=== PATIENT | female | born 1990 | race Caucasian/White ===

== ENCOUNTER 2016-08-23 10:29 | Emergency (ER) | payer SELFPAY ==
[~2016-08-23 10:29] MED LIST: NORCO1 TA1 PO
--- NOTE | 2016-08-23 14:27 | ED NURSING NOTES ---
Clinical Report - Nurses [facility] [address] [place] [address] 08/23/2016 10:32 Patient: COLIN QUIROS TRIAGE Triage time 1035. Acuity: LEVEL 3. Chief Complaint: COUGH and BODY ACHES and known FLU EXPOSURE. Alert. No acute distress. SEPSIS SCREEN: Sepsis Screen: negative. Negative (no infection suspected/documented). --10:50 Yas Stone R.N. 10:46 08/23/16. BP: 129/59. HR: 104. RR: 20. O2 saturation: 100%. Temp: 98.6 F. Pain level now: 08/22. --10:50 Yas Stone R.N. Weight: 63.5 kg stated. Height/Length: 65 inches Per Patient. BMI: 23.3. --10:47 Yas Stone R.N. Medications None. --10:48 Yas Stone R.N. Allergies No Known Drug Allergy. --10:48 Yas Stone R.N. Medication/allergy information source: the patient. --10:50 Yas Stone R.N. History This started yesterday. She has had chest congestion, fatigue and a headache. No recent travel. 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 PAST MEDICAL HX: Immunizations: status is unknown. Last normal menstrual period- Jun 27. SOCIAL HX: Never smoker. Occasional alcohol use. No drug use. FALL RISK ASSESSMENT: Fall risk assessment completed. No fall risk identified. NUTRITIONAL RISK ASSESSMENT: The nutritional risk assessment revealed no deficiencies. FUNCTIONAL ASSESSMENT: Functional assessment: no impairments noted. LEARNING NEEDS ASSESSMENT: The learning needs assessment revealed no barriers. SKIN INTEGRITY ASSESSMENT: Skin integrity risk assessment completed. No skin integrity risk identified. --10:50 Yas Stone R.N. PROBLEMS: Biliary Colic. --10:49 Yas Stone R.N. ADDITIONAL SURGERIES: Cholecystectomy. --10:49 Yas Stone R.N. Interventions ID band on patient. To room. --10:50 Yas Stone R.N. PHYSICAL ASSESSMENT Ambulatory to room. Patient gowned. GENERAL / NEURO / PSYCH: Alert. Oriented X 4. Appears anxious. HEENT: Mucous membranes are pink. RESPIRATORY: Respirations not labored. CVS: Capillary refill less than 2 seconds. GI / : ( "Feel a little bloated" . Last bm yesterday, hard, cramps). No nausea noted. No diarrhea or difficulty with urination. No emesis noted. SKIN: Skin intact. Skin is warm and dry. Normal skin turgor. --10:52 Ysa Stone R.N. NURSING PROGRESS NOTES Patient gowned. Head of bed elevated. Two patient identifiers checked. Call light placed in reach. Side rails up x 2. Bed placed in lowest position. Brakes of bed on. Patient ready for evaluation. --10:52 Yas Stone R.N. ( POC neg). --10:52 Yas Stone R.N. Patient ID band checked for patient name: patient confirmed. Instructions provided to collect clean catch urine and patient verbalized understanding. Clean catch urine collected with return of yellow-colored cloudy urine; sample sent to lab for urinalysis and culture. Specimen labeled in the presence of the patient. --10:53 Yas Stone R.N. 13:39. Patient ID band checked for patient name and birthdate: patient confirmed. Flu swab obtained by RN via nasal pharyngeal swab. Labeled in the presence of the patient and sent to lab. --13:42 Margaret Trevino R.N. Critical value relayed to ED by barrington. Critical value received by yas. pos influenza B. Critical value read back. Verified lab result and patient ID. ED physician notifed of critical value. --13:59 Yas Stone R.N. DISPOSITION / DISCHARGE 14:30. The patient was discharged by the physician. --19:07 Yas Stone R.N. 14:25 08/23/16. BP: 113/61. HR: 58. RR: 16. O2 saturation: 100%. Temp: deferred. Pain level now: 08/22. 13:04 08/23/16. BP: 118/78. HR: 88. RR: 20. O2 saturation: 100% on room air. 10:46 02/11/17. BP: 129/59. HR: 104. RR: 20. O2 saturation: 100%. Temp: 98.6 F. Pain level now: 08/22. --19:07 Yas Stone R.N. Locked/Released at 08/24/2016 22:45 by Yas Stone R.N.
--- NOTE | 2016-08-23 14:27 | ED ORDER SUMMARY ---
..... Patient: COLIN QUIROS OrderSheet [facility] VisitID: [id number] [address] [place] [address] 25y, F Registration Date/Time: 08/23/2016 ORDER SHEET Weight: 63.5 kg (stated) Allergies: No Known Drug Allergy GENERAL ORDERS: Rapid Influenza Screen (Nasal Pharyngeal) (swab) Urgent (11:08/23/2016 Westley CARPIO) (Ack 11:36 Wood) (13:40 Lupe R.N.) Urine Urgent (11:08/23/2016 Westley CARPIO) (Ack 11:36 Wood) (13:42 Lupe R.N.) MEDICATION ORDERS: IV FLUIDS: ORDER SHEET NOTES: [Electronically signed by Michaela Stone R.N. (22:45 08/24/2016)] [Electronically signed by Manoj Deal MD (00:59 08/25/2016)] [Electronically locked/signed by Michaela Stone R.N. (22:45 08/24/2016)]
--- NOTE | 2016-08-23 14:27 | ED CLINICAL REPORT ---
Clinical Report - Physicians/Mid Levels [facility] [address] [place] [address] 08/23/2016 10:32 Patient: COLIN QUIROS Time Seen: 11:26. Arrived- By private vehicle. Historian- patient. HISTORY OF PRESENT ILLNESS Chief Complaint: MUSCLE ACHES. Is still present. It was gradual in onset. The illness is described as moderate. The patient has had a mild cough, muscle aches and a nasal discharge. She has had chest discomfort (with cough). No fever, sore throat or ear pain. Additional history - The patient has had contact with a sick sister. REVIEW OF SYSTEMS Sexual history - sexually active. No contraception. No nausea, vomiting or diarrhea. Pt wonders if she is . PAST HISTORY PCP: Marur Illness: Possibly . SOCIAL HISTORY Never smoker. ADDITIONAL NOTES The nursing notes have been reviewed. PHYSICAL EXAM Vital Signs: 08/23/2016 14:25 BP: 113/61. HR: 58. RR: 16. O2 saturation: 100%. Pain level now: 08/22. 08/23/2016 13:04 BP: 118/78. HR: 88. RR: 20. O2 saturation: 100%. 08/23/2016 10:46 BP: 129/59. HR: 104. RR: 20. O2 saturation: 100%. Temp: 98.6 F. Pain level now: 10. Appearance: Alert. Eyes: Eyes normal inspection. ENT: Pharynx normal. Uvula midline. Neck: Normal inspection. Neck supple. Respiratory: No respiratory distress. Breath sounds normal. Abdomen: Soft and nontender. No organomegaly. Skin: Skin warm. Normal skin color. Extremities: Extremities exhibit normal ROM. No lower extremity edema. Neuro: No alteration in mental status. LABS, X-RAYS, AND EKG Laboratory Tests: Urine: (DOMITILA: 08/23/2016 10:36) ( MsgRcvd 08/23/2016 11:39) Final results Test Result Flag Units (Reference) URINE NEGATIVE Rapid Influenza Screen: (DOMITILA: 08/23/2016 13:39) ( MsgRcvd 08/23/2016 13:57) Final results SPECIMEN DESCRIPTION: SWAB Test Result Flag Units (Reference) RAPID INFLUENZA SCREEN CALLED TO: JESSE SHAH RN -- DATE: 08/23/16 INFLUENZA A: NEGATIVE SCREEN FOR INFLUENZA A INFLUENZA B: POSITIVE SCREEN FOR INFLUENZA B . CLINICAL IMPRESSION Influenza type B. INSTRUCTIONS Do not work (UNTIL FEVER AND COUGH GONE FOR 1 DAY). (IMMEDIATE RECHECK IF WORSE). Prescription Medications: Tamiflu 75 mg: take 1 capsule orally every 12 hours for 5 days. Dispense ten (10). No refills. Substitution is permissible. Follow-up: Follow up with your doctor in five days if not better. Understanding of the discharge instructions verbalized by patient. (Electronically signed by Manoj Deal MD 08/25/2016 0:59)
--- NOTE | 2016-08-23 14:27 | ED ORDER SUMMARY ---
..... Patient: COLIN QUIROS OrderSheet [facility] VisitID: [id number] [address] [place] [address] 25y, F Registration Date/Time: 08/23/2016 ORDER SHEET Weight: 63.5 kg (stated) Allergies: No Known Drug Allergy GENERAL ORDERS: Rapid Influenza Screen (Nasal Pharyngeal) (swab) Urgent (11:08/23/2016 Westley CARPIO) (Ack 11:36 Wood) (13:40 Lupe R.N.) Urine Urgent (11:08/23/2016 Westley CARPIO) (Ack 11:36 Wood) (13:42 Lupe R.N.) MEDICATION ORDERS: IV FLUIDS: ORDER SHEET NOTES: [Electronically signed by Michaela Stone R.N. (22:45 08/24/2016)] [Electronically signed by Manoj Deal MD (00:59 08/25/2016)] [Electronically locked/signed by Michaela Stone R.N. (22:45 08/24/2016)]
--- NOTE | 2016-08-23 14:27 | ED NURSING NOTES ---
Clinical Report - Nurses [facility] [address] [place] [address] 08/23/2016 10:32 Patient: COLIN QUIROS TRIAGE Triage time 1035. Acuity: LEVEL 3. Chief Complaint: COUGH and BODY ACHES and known FLU EXPOSURE. Alert. No acute distress. SEPSIS SCREEN: Sepsis Screen: negative. Negative (no infection suspected/documented). --10:50 Yas Stone R.N. 10:46 08/23/16. BP: 129/59. HR: 104. RR: 20. O2 saturation: 100%. Temp: 98.6 F. Pain level now: 08/22. --10:50 Yas Stone R.N. Weight: 63.5 kg stated. Height/Length: 65 inches Per Patient. BMI: 23.3. --10:47 Yas Stone R.N. Medications None. --10:48 Yas Stone R.N. Allergies No Known Drug Allergy. --10:48 Yas Stone R.N. Medication/allergy information source: the patient. --10:50 Yas Stone R.N. History This started yesterday. She has had chest congestion, fatigue and a headache. No recent travel. 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 PAST MEDICAL HX: Immunizations: status is unknown. Last normal menstrual period- Jun 27. SOCIAL HX: Never smoker. Occasional alcohol use. No drug use. FALL RISK ASSESSMENT: Fall risk assessment completed. No fall risk identified. NUTRITIONAL RISK ASSESSMENT: The nutritional risk assessment revealed no deficiencies. FUNCTIONAL ASSESSMENT: Functional assessment: no impairments noted. LEARNING NEEDS ASSESSMENT: The learning needs assessment revealed no barriers. SKIN INTEGRITY ASSESSMENT: Skin integrity risk assessment completed. No skin integrity risk identified. --10:50 Yas Stone R.N. PROBLEMS: Biliary Colic. --10:49 Yas Stone R.N. ADDITIONAL SURGERIES: Cholecystectomy. --10:49 Yas Stone R.N. Interventions ID band on patient. To room. --10:50 Yas Stone R.N. PHYSICAL ASSESSMENT Ambulatory to room. Patient gowned. GENERAL / NEURO / PSYCH: Alert. Oriented X 4. Appears anxious. HEENT: Mucous membranes are pink. RESPIRATORY: Respirations not labored. CVS: Capillary refill less than 2 seconds. GI / : ( "Feel a little bloated" . Last bm yesterday, hard, cramps). No nausea noted. No diarrhea or difficulty with urination. No emesis noted. SKIN: Skin intact. Skin is warm and dry. Normal skin turgor. --10:52 Yas Stone R.N. NURSING PROGRESS NOTES Patient gowned. Head of bed elevated. Two patient identifiers checked. Call light placed in reach. Side rails up x 2. Bed placed in lowest position. Brakes of bed on. Patient ready for evaluation. --10:52 Yas Stone R.N. ( POC neg). --10:52 Ysa Stone R.N. Patient ID band checked for patient name: patient confirmed. Instructions provided to collect clean catch urine and patient verbalized understanding. Clean catch urine collected with return of yellow-colored cloudy urine; sample sent to lab for urinalysis and culture. Specimen labeled in the presence of the patient. --10:53 Yas Stone R.N. 13:39. Patient ID band checked for patient name and birthdate: patient confirmed. Flu swab obtained by RN via nasal pharyngeal swab. Labeled in the presence of the patient and sent to lab. --13:42 Margaret Trevino R.N. Critical value relayed to ED by barrington. Critical value received by yas. pos influenza B. Critical value read back. Verified lab result and patient ID. ED physician notifed of critical value. --13:59 Yas Stone R.N. DISPOSITION / DISCHARGE 14:30. The patient was discharged by the physician. --19:07 Yas Stone R.N. 14:25 08/23/16. BP: 113/61. HR: 58. RR: 16. O2 saturation: 100%. Temp: deferred. Pain level now: 08/22. 13:04 08/23/16. BP: 118/78. HR: 88. RR: 20. O2 saturation: 100% on room air. 10:46 02/11/17. BP: 129/59. HR: 104. RR: 20. O2 saturation: 100%. Temp: 98.6 F. Pain level now: 08/22. --19:07 Yas Stone R.N. Locked/Released at 08/24/2016 22:45 by Yas Stone R.N.
--- NOTE | 2016-08-23 14:27 | ED CLINICAL REPORT ---
Clinical Report - Physicians/Mid Levels [facility] [address] [place] [address] 08/23/2016 10:32 Patient: COLIN QUIROS Time Seen: 11:26. Arrived- By private vehicle. Historian- patient. HISTORY OF PRESENT ILLNESS Chief Complaint: MUSCLE ACHES. Is still present. It was gradual in onset. The illness is described as moderate. The patient has had a mild cough, muscle aches and a nasal discharge. She has had chest discomfort (with cough). No fever, sore throat or ear pain. Additional history - The patient has had contact with a sick sister. REVIEW OF SYSTEMS Sexual history - sexually active. No contraception. No nausea, vomiting or diarrhea. Pt wonders if she is . PAST HISTORY PCP: Marur Illness: Possibly . SOCIAL HISTORY Never smoker. ADDITIONAL NOTES The nursing notes have been reviewed. PHYSICAL EXAM Vital Signs: 08/23/2016 14:25 BP: 113/61. HR: 58. RR: 16. O2 saturation: 100%. Pain level now: 08/22. 08/23/2016 13:04 BP: 118/78. HR: 88. RR: 20. O2 saturation: 100%. 08/23/2016 10:46 BP: 129/59. HR: 104. RR: 20. O2 saturation: 100%. Temp: 98.6 F. Pain level now: 10. Appearance: Alert. Eyes: Eyes normal inspection. ENT: Pharynx normal. Uvula midline. Neck: Normal inspection. Neck supple. Respiratory: No respiratory distress. Breath sounds normal. Abdomen: Soft and nontender. No organomegaly. Skin: Skin warm. Normal skin color. Extremities: Extremities exhibit normal ROM. No lower extremity edema. Neuro: No alteration in mental status. LABS, X-RAYS, AND EKG Laboratory Tests: Urine: (DOMITILA: 08/23/2016 10:36) ( MsgRcvd 08/23/2016 11:39) Final results Test Result Flag Units (Reference) URINE NEGATIVE Rapid Influenza Screen: (DOMITILA: 08/23/2016 13:39) ( MsgRcvd 08/23/2016 13:57) Final results SPECIMEN DESCRIPTION: SWAB Test Result Flag Units (Reference) RAPID INFLUENZA SCREEN CALLED TO: JESSE SHAH RN -- DATE: 08/23/16 INFLUENZA A: NEGATIVE SCREEN FOR INFLUENZA A INFLUENZA B: POSITIVE SCREEN FOR INFLUENZA B . CLINICAL IMPRESSION Influenza type B. INSTRUCTIONS Do not work (UNTIL FEVER AND COUGH GONE FOR 1 DAY). (IMMEDIATE RECHECK IF WORSE). Prescription Medications: Tamiflu 75 mg: take 1 capsule orally every 12 hours for 5 days. Dispense ten (10). No refills. Substitution is permissible. Follow-up: Follow up with your doctor in five days if not better. Understanding of the discharge instructions verbalized by patient. (Electronically signed by Manoj Deal MD 08/25/2016 0:59)
--- NOTE | 2016-08-25 01:00 | ED MED RECONCILIATION SUMMARY ---
Patient: GRACIELA PATELCOLIN Medication Reconciliation Report [facility] VisitID: [id number] [address] [place] [address] 25y, F Registration Date/Time: 08/23/2016 Weight: 63.5 kg Height/Length: 65 in. BMI: 23.3 ALLERGIES: No Known Drug Allergy The patient's Home Medications are listed below: NONE. The source(s) of the original Home Medication information: patient The following Medications were given to the patient in the Emergency Department: None. The following Medications were prescribed to the patient: Tamiflu 75 mg: take 1 capsule orally every 12 hours for 5 days. Dispense ten (10). No refills. Substitution is permissible. -- Manoj Deal MD
--- NOTE | 2016-08-25 01:00 | ED DISCHARGE INSTRUCTIONS ---
Patient: COLIN QUIROS General Instructions Located Within [facility] VisitID: [id number] [place] [address] 25y, F Registration Date/Time: 08/23/2016 Influenza type B. INSTRUCTIONS Do not work (UNTIL FEVER AND COUGH GONE FOR 1 DAY). (IMMEDIATE RECHECK IF WORSE). Prescription Medications: Tamiflu 75 mg: take 1 capsule orally every 12 hours for 5 days. Dispense ten (10). No refills. Substitution is permissible. Follow-up: Follow up with your doctor in five days if not better. Understanding of the discharge instructions verbalized by patient. ADDITIONAL INFORMATION Influenza (Adult) Influenza, also called the flu, is a viral illness that affects the air passages of the lungs. It differs from the common cold. It is highly contagious. It may be spread through the air by coughing and sneezing or by direct contact (touching the sick person and then touching your own eyes, nose or mouth). Illness starts 1-3 days after exposure and lasts for 1-2 weeks. Antibiotics are usually not needed unless a complication appears (ear or sinus infection or pneumonia). Symptoms may be mild or severe and can include extreme tiredness (wanting to stay in bed all day), chills, fevers, muscle aching, soreness with eye movement, headache, and a dry, hacking cough. Home Care: Avoid exposure to cigarette smoke (yours or others). Tylenol or ibuprofen (Advil) will help fever, muscle aching, and headache. To avoid risk of liver injury, aspirin should not be used in children and teenagers under 18 with this illness. Nausea and loss of appetite are common. A light diet is recommended. Avoid dehydration by drinking 6-8 glasses of fluids per day (water, sport drinks like Gatorade, soft drinks without caffeine, juices, tea, soup, etc.). Extra fluids will also help loosen secretions in the nose and lungs. Cbvs-vni-nyghvgn cold medicines will not shorten the duration of the illness but may be helpful for the following symptoms: cough (Robitussin DM); sore throat (Chloraseptic lozenges or spray); nasal and sinus congestion (Actifed or Sudafed). [NOTE: Do not use decongestants if you have high blood pressure.] Stay home until your fever has been gone for at least 24 hours (without the use of fever-reducing medications such as ibuprofen). Follow Up with your doctor or as directed by our staff if you are not improving over the next week. Note: If you are age 65 or older, or if you have chronic asthma or COPD, we recommend a pneumococcal vaccinationevery five years. All adults shouldreceive a yearly influenza vaccination every . Ask your doctor about this. Get Prompt Medical Attention if any of the following occur: Cough with lots of colored sputum (mucus) or blood in your sputum Chest pain, shortness of breath, wheezing, or difficulty breathing Severe headache, face, neck or ear pain New rash Fever of 100.4F (38C) oral or higher, not better with fever medication Confusion, behavior change or seizure Severe weakness or dizziness You have been given the following additional information: Influenza (Adult) Do not work (UNTIL FEVER AND COUGH GONE FOR 1 DAY). (Electronically signed by Manoj Deal MD 08/25/2016 0:59)
--- NOTE | 2016-08-25 01:00 | ED MAR SUMMARY ---
..... Medication Administration Record [facility] [address] [place], [place] [id number] Patient: GRACIELA LUISPEDCOLIN Castillo Visit ID: [id number] 25y, F Weight: 63.5 kg Height/Length: 65 in BMI: 23.3 ALLERGIES: No Known Drug Allergy
--- NOTE | 2016-08-25 01:00 | ED MAR SUMMARY ---
..... Medication Administration Record [facility] [address] [place], [place] [id number] Patient: GRACIELA LUISPEDCOLIN Castillo Visit ID: [id number] 25y, F Weight: 63.5 kg Height/Length: 65 in BMI: 23.3 ALLERGIES: No Known Drug Allergy
--- NOTE | 2016-08-25 01:00 | ED MED RECONCILIATION SUMMARY ---
Patient: GRACIELA PATELCOLIN Medication Reconciliation Report [facility] VisitID: [id number] [address] [place] [address] 25y, F Registration Date/Time: 08/23/2016 Weight: 63.5 kg Height/Length: 65 in. BMI: 23.3 ALLERGIES: No Known Drug Allergy The patient's Home Medications are listed below: NONE. The source(s) of the original Home Medication information: patient The following Medications were given to the patient in the Emergency Department: None. The following Medications were prescribed to the patient: Tamiflu 75 mg: take 1 capsule orally every 12 hours for 5 days. Dispense ten (10). No refills. Substitution is permissible. -- Manoj Deal MD
== END 2016-08-23 14:30 | disposition home or self-care (01) ==
LOC: ED SRH 10:29
DX: J10.1 Influenza due to other identified influenza virus with other respiratory manifestations (principal)
CPT/HCPCS: 91400; 93070

== ENCOUNTER 2016-08-27 09:50 | Emergency (ER) | payer SELFPAY ==
--- NOTE | 2016-08-27 12:00 | DIAGNOSTIC IMAGING REPORT ---
PROCEDURE: XR ABDOMEN 1 VIEW UPRIGHT INDICATION: VOMITING TECHNIQUE: Single view upright abdomen. COMPARISON: None. FINDINGS: No free intraperitoneal air. Nonspecific, nonobstructive bowel gas pattern. No suspicious mass, mass effect, or calcifications. The visible osseous structures are intact. Clips from a cholecystectomy. IMPRESSION: 1. Normal single view abdomen.
--- NOTE | 2016-08-27 12:33 | ED ORDER SUMMARY ---
..... Patient: COLIN QUIROS OrderSheet [facility] VisitID: [id number] [address] [place] [address] 25y, F Registration Date/Time: 08/27/2016 ORDER SHEET Weight: 63.5 kg (stated) Allergies: No Known Drug Allergy GENERAL ORDERS: UA-Culture if indicated Urgent (10:11 08/27/2016 JBoardley R.N. per protocol) (Ack 10:14 LNations ER Tech1) (10:15 JBoardley R.N.) Urine Urgent (10:11 08/27/2016 JBoardley R.N. per protocol) (Ack 10:14 LNations ER Tech1) (10:15 JBoardley R.N.) CBC w Diff Urgent (10:15 08/27/2016 JBoardley R.N. per protocol) (Ack 10:21 LNations ER Tech1) (10:48 JBoardley R.N.) CMP Urgent (10:15 08/27/2016 JBoardley R.N. per protocol) (Ack 10:21 LNations ER Tech1) (10:48 JBoardley R.N.) Amylase Urgent (10:15 08/27/2016 JBoardley R.N. per protocol) (Ack 10:21 LNations ER Tech1) (10:48 JBoardley R.N.) Lipase Urgent (10:15 08/27/2016 JBoardley R.N. per protocol) (Ack 10:21 LNations ER Tech1) (10:48 JBoardley R.N.) Abdomen 1V Upright Urgent (10:29 08/27/2016 Yue CARPIO) (Ack 10:32 LNations ER Tech1) (11:02 JBoardley R.N.) MEDICATION ORDERS: IV FLUIDS: IV NS : initial bolus none -, then 1000 mL/hr for X1 (NOW) (10:15 08/27/2016 JBoardley R.N. per protocol) (10:16 JBoardley R.N.) Zofran IV 4 mg (NOW) (10:08/27/2016 JBoardley R.N. per protocol) (10:16 JBoardley R.N.) Dilaudid IV 0.5 mg (NOW) (11:08 08/27/2016 uYe CARPIO) (11:12 JBoardley R.N.) Ativan IV 0.5 mg (NOW) (11:08 08/27/2016 Yue CARPIO) (11:12 JBoardley R.N.) Dilaudid IV 0.5 mg (NOW) (12:27 08/27/2016 Yue CARPIO) (Ack 12:32 JBoardley R.N.) (12:37 JBoardley R.N.) Ativan IV 0.5 mg (NOW) (12:28 08/27/2016 Yue CARPIO) (Ack 12:32 JBoardley R.N.) (12:37 JBoardley R.N.) ORDER SHEET NOTES: [Electronically signed by Maico Vargas R.N. (12:45 08/27/2016)] [Electronically signed by Ruben Patrick MD (20:50 08/29/2016)] [Electronically locked/signed by Maico Vargas R.N. (12:45 08/27/2016)]
--- NOTE | 2016-08-27 12:33 | ED NURSING NOTES ---
Clinical Report - Nurses [facility] [address] [place] [address] 08/27/2016 9:51 [id number] Triage time 10:01. Acuity: LEVEL 3. Chief Complaint: NAUSEA and VOMITING. 10:02 08/27/16. 10:02 08/27/16. Alert. No acute distress. ( Pt c/o N/V with PINEDA. Pt was seen here recently and). SEPSIS SCREEN: Sepsis Screen. Negative (no infection suspected/documented). --10:06 Maico Vargas R.N. 10:01 08/27/16. BP: 118/68. HR: 96. RR: 18. O2 saturation: 100% on room air. Temp: 98.7 F (oral). Pain level now: 12/20. --10:06 Maico Vargas R.N. Weight: 63.5 kg stated. Height/Length: 65 inches Per Patient. BMI: 23.3. --10:00 Maico Vargas R.N. Medications Tamiflu Oral. --10:05 Maico Vargas R.N. Medication/allergy information source: the patient. --10:06 Maico Vargas R.N. Allergies No Known Drug Allergy. --10:05 Maico Vargas R.N. History Arrived by private vehicle. Primary physician (Sep). 10:02 08/27/16. ( Thursday). 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 PAST MEDICAL HX: Last normal menstrual period now. Immunizations not up to date. SOCIAL HX: Never smoker. No alcohol use or drug use. No recent travel. She has had contact with a sick family member. No infectious disease exposure. ABUSE ASSESSMENT: No report of abuse. FALL RISK ASSESSMENT: Fall risk assessment completed. No fall risk identified. NUTRITIONAL RISK ASSESSMENT: The nutritional risk assessment revealed no deficiencies. FUNCTIONAL ASSESSMENT: Functional assessment: no impairments noted. LEARNING NEEDS ASSESSMENT: The learning needs assessment revealed no barriers. SKIN INTEGRITY ASSESSMENT: Skin integrity risk assessment completed. No skin integrity risk identified. --10:06 Maico Vargas R.N. PROBLEMS: Influenza. Biliary Colic. --10:05 Maico Vargas R.N. ADDITIONAL SURGERIES: Cholecystectomy. --10:05 Maico Vargas R.N. Assessment 10:08/27/16. --10:06 Maico Vargas R.N. Interventions 10:08/27/16. 10:08/27/16. ID and allergy band on patient. To treatment room. --10:06 Maico Vargas R.N. PHYSICAL ASSESSMENT 10:08/27/16. Ambulatory to room. GENERAL / NEURO / PSYCH: Appears in pain. RESPIRATORY: Respirations not labored. CVS: Capillary refill less than 2 seconds. SKIN: Skin is warm and dry. --10:06 Maico Vargas R.N. NURSING PROGRESS NOTES 10:08/27/2016 Site #1 started via IV in the right antecubital space with an 20g angiocath, with aseptic technique and good blood return; one attempt. Blood drawn: rainbow set. Labeled in the presence of the patient and sent to the lab. Saline lock flushed with 10 mL saline. --10:16 Maico Vargas R.N. 10:08/27/16. The plan of care for this patient has been created. school lunch monitor, pulse oximeter and NIBP monitor placed on patient; monitor alarms on. Head of bed elevated. Two patient identifiers checked. Call light placed in reach. Side rails up x 2. Bed placed in lowest position. Brakes of bed on. Brakes of chair on. --10:06 Maico Vargas R.N. 10:08/27/16. Patient ready for evaluation- chart flagged and notification provided. --10:06 Miaco Vargas R.N. 10:08/27/16. Patient ID band checked for patient name and birthdate: patient confirmed. Instructions provided to collect clean catch urine and patient verbalized understanding. Clean catch urine collected with return of yellow-colored urine; sample sent to lab for urinalysis, culture and HCG. Specimen labeled in the presence of the patient. --10:15 Maico Vargas R.N. 10:16 08/27/2016 Started bag #1 1000 mL IV Fluids IV NS (Saline); at 1000 mL/hr over 1 hour(s) via site #1. Allergies verified and confirmed 5 rights. IV patency established. IV site checked: no pain, redness, or swelling. IV flushed thoroughly pre- and post-medication administration. Completed per protocol. --10:16 Maico Vargas R.N. 10:16 08/27/2016 Zofran (Ondansetron HCl) IVP 4 mg given. via site #1. Allergies verified and confirmed 5 rights. IV patency established. IV site checked: no pain, redness, or swelling. IV flushed thoroughly pre- and post-medication administration. IVP given by RN. --10:16 Maico Vargas R.N. 10:16 08/27/16. BP: 105/61. HR: 85. RR: 14. O2 saturation: 100% on room air. --10:16 Maico Vargas R.N. 10:16 08/27/16. --10:16 Maico Vargas R.N. 11:06 08/27/2016 IV Fluids IV NS Discontinued: bag #1 infused. Total amount infused: 1000 mL. IV patency established. IV site checked: no pain, redness, or swelling. IV flushed thoroughly. --11:06 Maico Vargas R.N. 11:12 08/27/2016 Dilaudid (HYDROmorphone HCl PF) IVP 0.5 mg given over 2 minute(s) via site #1. Allergies verified, confirmed 5 rights and sedative warning given to the patient. IV patency established. IV site checked: no pain, redness, or swelling. IV flushed thoroughly pre- and post-medication administration. IVP given by RN. --11:12 Maico Vargas R.N. 11:12 08/27/2016 Ativan (LORazepam) IVP 0.5 mg given over 2 minute(s) via site #1. Allergies verified, confirmed 5 rights and sedative warning given to the patient. IV patency established. IV site checked: no pain, redness, or swelling. IV flushed thoroughly pre- and post-medication administration. IVP given by RN. --11:12 Maico Vargas R.N. 11:31 08/27/16. Pulse oximeter and NIBP monitor placed on patient. --11:31 Maico Vargas R.N. 11:08/27/16. HR: 79. O2 saturation: 100% on room air. --11: Maico Vargas R.N. 11:08/27/16. --11:31 Maico Vargas R.N. 12:37 08/27/2016 Dilaudid (HYDROmorphone HCl PF) IVP 0.5 mg given over 2 minute(s) via site #1. Allergies verified, confirmed 5 rights and sedative warning given to the patient and patient's family. IV patency established. IV site checked: no pain, redness, or swelling. IV flushed thoroughly pre- and post-medication administration. IVP given by RN. --12:37 Maico Vargas R.N. 12:37 08/27/2016 Ativan (LORazepam) IVP 0.5 mg given over 2 minute(s) via site #1. Allergies verified, confirmed 5 rights and sedative warning given to the patient. IV patency established. IV site checked: no pain, redness, or swelling. IV flushed thoroughly pre- and post-medication administration. IVP given by RN. --12:37 Maico Vargas R.N. DISPOSITION / DISCHARGE 12:42 08/27/2016 Site #1 removed upon discharge. Catheter intact. --12:42 Maico Vargas R.N. 12:42 08/27/16. Condition at departure: improved. The goals identified in the patient's plan of care were met. No learning barriers present. Discharge instructions provided and reviewed with the patient and family. Reviewed warnings. Reviewed medication(s). Treatments reviewed. Patient and family verbalized understanding. Written instructions provided in Beninese. The patient was discharged by the physician. She was discharged home and accompanied by family. She left the Emergency Department ambulatory and via private vehicle. Family member driving. FALL RISK ASSESSMENT: Fall risk assessment completed. No fall risk identified. --12:42 Maico Vargas R.N. 12:42 08/27/16. BP: 104/72. HR: 79. RR: 14. O2 saturation: 100% on room air. Temp: 98.1 F (oral). --12:42 Maico Vargas R.N. 12:43 08/27/16. Departure time: 12:43. --12:43 Maico Vargas R.N. Locked/Released at 08/27/2016 12:45 by Maico Vargas R.N.
--- NOTE | 2016-08-27 12:33 | ED CLINICAL REPORT ---
Clinical Report - Physicians/Mid Levels [facility] [address] [place] [address] 08/27/2016 9:51 Patient: COLIN QUIROS Time Seen: 10:08 Aug 27 2016. Arrived- By private vehicle. Historian- patient. CPT: ER phys charges level 4 (#[id number]). HISTORY OF PRESENT ILLNESS Chief Complaint: VOMITING. NAUSEA. 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 Has had intermittent emesis since then . Did not keep much down yesterday. Has a PINEDA and thinks this may be making her vomit. and is still present. No nausea, diarrhea, black stools, bloody stools or abdominal pain. No history of possible bad food exposure or known contact with a sick individual. She has had vomiting. Has not recently been on antibiotics. The illness is described as moderate. Similar symptoms previously: None. 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 Seen for similar symptoms. Diagnosis: (Influenza B). REVIEW OF SYSTEMS The patient has had fever, muscle aches and a cough. No difficulty with urination, dark urine, dizziness, sore throat or chest pain. No difficulty breathing, excessive urination or skin rash. Denies current . Hx of PINEDA like this in the past that were just as bad but pain medication did not help much. All systems otherwise negative, except as recorded above. PAST HISTORY Influenza. Biliary Colic. ADDITIONAL SURGERIES: Cholecystectomy. Medications: Tamiflu Oral. Allergies: No Known Drug Allergy. SOCIAL HISTORY Never smoker. No alcohol use or drug use. ADDITIONAL NOTES The nursing notes have been reviewed. PHYSICAL EXAM Vital Signs: 08/27/2016 10:01 BP: 118/68. HR: 96. RR: 18. O2 saturation: 100%. Temp: 98.7 F. Pain level now: 6/10. Appearance: Alert. Appears to be in pain. Patient in mild distress. Eyes: Pupils equal, round and reactive to light. Eyes normal inspection. ENT: Pharynx normal. Neck: Normal inspection. Neck supple. No meningeal signs or lymphadenopathy. CVS: Normal heart rate and rhythm. Heart sounds normal. Pulses normal. Respiratory: No respiratory distress. Breath sounds normal. Abdomen: Soft and nontender. Bowel sounds normal. Skin: Skin warm. Normal skin color. No rash. Neuro: Oriented X 3. No motor deficit. No sensory deficit. Reflexes normal. LABS, X-RAYS, AND EKG Laboratory Tests: UA-Culture if indicated: (DOMITILA: 08/27/2016 10:00) ( [facility] 08/27/2016 10:25) Final results Test Result Flag Units (Reference) URINE COLOR STRAW URINE APPEARANCE CLEAR URINE GLUCOSE NEGATIVE (NEGATIVE) URINE BILIRUBIN NEGATIVE (NEGATIVE) URINE KETONE NEGATIVE (NEGATIVE) URINE SPECIFIC GRAVITY 1.025 (1.010-1.030) URINE PH 6.0 (5.0-8.0) URINE PROTEIN TRACE (NEGATIVE) URINE UROBILINOGEN 1.0 EU/dL (0.2-1.0) URINE NITRITE NEGATIVE (NEGATIVE) URINE BLOOD 3+ (NEGATIVE) URINE LEUK ESTERASE NEGATIVE (NEGATIVE) URINE RBC 10-25 rbc/hpf (0-1) URINE WBC 3-5 wbc/hpf (0-1) URINE EPITHELIAL CELLS 3-5 EPI/hpf (0-5) URINE BACTERIA TRACE (<1+) (NONE SEEN) URINE COMMENT CULT NOT INDICATED 2+ MUCOUSURINE CULTURES ARE SET-UP BASED ON THE FOLLOWING CRITERIA:POSITIVE NITRITEPOSITIVE LEUKOCYTE ESTERASEGREATER THAN 10 WHITE BLOOD CELLSMODERATE (2+) OR GREATER BACTERIA Urine: (DOMITILA: 08/27/2016 10:00) ( [facility] 08/27/2016 10:18) Final results Test Result Flag Units (Reference) URINE NEGATIVE CBC w Diff: (DOMITILA: 08/27/2016 10:15) ( [facility] 08/27/2016 10:28) Final results Test Result Flag Units (Reference) WHITE BLOOD COUNT 5.2 K/uL (4.5-11.5) RED BLOOD COUNT 4.38 M/uL (4.00-5.20) HEMOGLOBIN 13.7 gm/dL (12.0-16.0) HEMATOCRIT 40.2 % (36.0-46.0) MEAN CELL VOLUME 92 fL (80-100) MEAN CORPUSCULAR HGB 31 pg (26-34) MEAN CORPUSCULAR HGB CONC 34 g/dL (31-37) RED CELL DISTRIBUTION WIDTH 11.7 % (11.6-14.8) PLATELET COUNT 132 L K/uL (150-400) NEUTROPHIL % 70.0 % (50-75) LYMPH % 22.5 L % (25-40) MONO % 6.8 % (3-14) EOSINOPHIL % 0.5 % (0-4) BASOPHIL % 0.2 % (0-2) CMP: (DOMITILA: 08/27/2016 10:15) ( MsgRcvd 08/27/2016 10:55) Final results Test Result Flag Units (Reference) GLUCOSE 93 mg/dL (70-110) BUN 10 mg/dL (7-18) CREATININE 0.7 mg/dL (0.6-1.3) Estimated GFR >60 mL/min Estimated GFR- >60 mL/min Note: Persistent reduction over 3 months in eGFR<60 mL/min/1.73 m2 defines CKD. Patients with eGFR values>=60 mL/min/1.73 m2 may also have CKD if evidence ofpersistent proteinuria. Additional information may be foundat www.kidney.org. SODIUM 140 mmol/L (136-145) POTASSIUM 3.6 mmol/L (3.5-5.1) CHLORIDE 106 mmol/L (98-107) CARBON DIOXIDE 22 mmol/L (21-32) CALCIUM 8.1 L mg/dL (8.5-10.1) TOTAL PROTEIN 6.8 g/dL (6.4-8.2) ALBUMIN 3.2 L g/dL (3.3-5.0) BILIRUBIN, TOTAL 0.3 mg/dL (0.0-1.0) ALKALINE PHOSPHATASE 80 U/L (46-116) AST (SGOT) 45 H U/L (15-37) ALT (SGPT) 46 U/L (12-78) LIPASE 176 U/L (73-393) AMYLASE 35 U/L (25-115) . PROGRESS AND PROCEDURES Course of Care: Pt with juan miguel B with poor po since diagnosis. PINEDA that has come and gone with the illness. Worse today likely due to poor po and the viral illness. NO sign of meningitis or encephalitis. No sign of pneumonia. Patient/family counseled. Disposition: Discharged. Condition: stable and improved. CLINICAL IMPRESSION Ongoing influenza B Poor po due to illness Vomiting due to PINEDA PINEDA due to viral illness and poor po. INSTRUCTIONS No strenuous activity. Rest. Do not work for two days until better. Drink plenty of fluids. Warnings: Further evaluation is necessary. SEDATIVE MEDICATION: You were given sedative medication during your visit. Do not drive or operate dangerous machinery. GENERAL WARNINGS: Return or contact your physician immediately if your condition worsens or changes unexpectedly, if not improving as expected, or if other problems arise. Your Current Medications: CONTINUE TAKING THE FOLLOWING MEDICATIONS: Tamiflu Oral. Prescription Medications: Zofran (orally disintegrating tablets) 4 mg: take 1 orally every 4 hours as needed for nausea. Dispense ten (10). No refill. Substitution is permissible. Oxycodone/APAP 5 mg/325 mg: take 1-2 tablets orally every 4 hours as needed for pain. Dispense fifteen (15). No refill. Soma 350 mg: take 1 orally every 6 hours as needed for pain. Dispense fifteen (15). No refill. Follow-up: Follow up with your doctor in two days if not better. Understanding of the discharge instructions verbalized by patient and family. (Electronically signed by Ruben Patrick MD 08/29/2016 20:50)
--- NOTE | 2016-08-27 12:33 | ED ORDER SUMMARY ---
..... Patient: COLIN QUIROS OrderSheet [facility] VisitID: [id number] [address] [place] [address] 25y, F Registration Date/Time: 08/27/2016 ORDER SHEET Weight: 63.5 kg (stated) Allergies: No Known Drug Allergy GENERAL ORDERS: UA-Culture if indicated Urgent (10:11 08/27/2016 JBoardley R.N. per protocol) (Ack 10:14 LNations ER Tech1) (10:15 JBoardley R.N.) Urine Urgent (10:11 08/27/2016 JBoardley R.N. per protocol) (Ack 10:14 LNations ER Tech1) (10:15 JBoardley R.N.) CBC w Diff Urgent (10:15 08/27/2016 JBoardley R.N. per protocol) (Ack 10:21 LNations ER Tech1) (10:48 JBoardley R.N.) CMP Urgent (10:15 08/27/2016 JBoardley R.N. per protocol) (Ack 10:21 LNations ER Tech1) (10:48 JBoardley R.N.) Amylase Urgent (10:15 08/27/2016 JBoardley R.N. per protocol) (Ack 10:21 LNations ER Tech1) (10:48 JBoardley R.N.) Lipase Urgent (10:15 08/27/2016 JBoardley R.N. per protocol) (Ack 10:21 LNations ER Tech1) (10:48 JBoardley R.N.) Abdomen 1V Upright Urgent (10:29 08/27/2016 Yue CARPIO) (Ack 10:32 LNations ER Tech1) (11:02 JBoardley R.N.) MEDICATION ORDERS: IV FLUIDS: IV NS : initial bolus none -, then 1000 mL/hr for X1 (NOW) (10:15 08/27/2016 JBoardley R.N. per protocol) (10:16 JBoardley R.N.) Zofran IV 4 mg (NOW) (10:08/27/2016 JBoardley R.N. per protocol) (10:16 JBoardley R.N.) Dilaudid IV 0.5 mg (NOW) (11:08 08/27/2016 Yue CARPIO) (11:12 JBoardley R.N.) Ativan IV 0.5 mg (NOW) (11:08 08/27/2016 Yue CARPIO) (11:12 JBoardley R.N.) Dilaudid IV 0.5 mg (NOW) (12:27 08/27/2016 Yue CARPIO) (Ack 12:32 JBoardley R.N.) (12:37 JBoardley R.N.) Ativan IV 0.5 mg (NOW) (12:28 08/27/2016 Yue CARPIO) (Ack 12:32 JBoardley R.N.) (12:37 JBoardley R.N.) ORDER SHEET NOTES: [Electronically signed by Maico Vargas R.N. (12:45 08/27/2016)] [Electronically signed by Ruben Patrick MD (20:50 08/29/2016)] [Electronically locked/signed by Maico Vargas R.N. (12:45 08/27/2016)]
--- NOTE | 2016-08-27 12:33 | ED CLINICAL REPORT ---
Clinical Report - Physicians/Mid Levels [facility] [address] [place] [address] 08/27/2016 9:51 Patient: COLIN QUIROS Time Seen: 10:08 Aug 27 2016. Arrived- By private vehicle. Historian- patient. CPT: ER phys charges level 4 (#[id number]). HISTORY OF PRESENT ILLNESS Chief Complaint: VOMITING. 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 Has had intermittent emesis since then . Did not keep much down yesterday. Has a PINEDA and thinks this may be making her vomit. and is still present. No nausea, diarrhea, black stools, bloody stools or abdominal pain. No history of possible bad food exposure or known contact with a sick individual. She has had vomiting. Has not recently been on antibiotics. The illness is described as moderate. Similar symptoms previously: None. 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 Seen for similar symptoms. Diagnosis: (Influenza B). REVIEW OF SYSTEMS The patient has had fever, muscle aches and a cough. No difficulty with urination, dark urine, dizziness, sore throat or chest pain. No difficulty breathing, excessive urination or skin rash. Denies current . Hx of PINEDA like this in the past that were just as bad but pain medication did not help much. All systems otherwise negative, except as recorded above. PAST HISTORY Influenza. Biliary Colic. ADDITIONAL SURGERIES: Cholecystectomy. Medications: Tamiflu Oral. Allergies: No Known Drug Allergy. SOCIAL HISTORY Never smoker. No alcohol use or drug use. ADDITIONAL NOTES The nursing notes have been reviewed. PHYSICAL EXAM Vital Signs: 08/27/2016 10:01 BP: 118/68. HR: 96. RR: 18. O2 saturation: 100%. Temp: 98.7 F. Pain level now: 6/10. Appearance: Alert. Appears to be in pain. Patient in mild distress. Eyes: Pupils equal, round and reactive to light. Eyes normal inspection. ENT: Pharynx normal. Neck: Normal inspection. Neck supple. No meningeal signs or lymphadenopathy. CVS: Normal heart rate and rhythm. Heart sounds normal. Pulses normal. Respiratory: No respiratory distress. Breath sounds normal. Abdomen: Soft and nontender. Bowel sounds normal. Skin: Skin warm. Normal skin color. No rash. Neuro: Oriented X 3. No motor deficit. No sensory deficit. Reflexes normal. LABS, X-RAYS, AND EKG Laboratory Tests: UA-Culture if indicated: (DOMITILA: 08/27/2016 10:00) ( [facility] 08/27/2016 10:25) Final results Test Result Flag Units (Reference) URINE COLOR STRAW URINE APPEARANCE CLEAR URINE GLUCOSE NEGATIVE (NEGATIVE) URINE BILIRUBIN NEGATIVE (NEGATIVE) URINE KETONE NEGATIVE (NEGATIVE) URINE SPECIFIC GRAVITY 1.025 (1.010-1.030) URINE PH 6.0 (5.0-8.0) URINE PROTEIN TRACE (NEGATIVE) URINE UROBILINOGEN 1.0 EU/dL (0.2-1.0) URINE NITRITE NEGATIVE (NEGATIVE) URINE BLOOD 3+ (NEGATIVE) URINE LEUK ESTERASE NEGATIVE (NEGATIVE) URINE RBC 10-25 rbc/hpf (0-1) URINE WBC 3-5 wbc/hpf (0-1) URINE EPITHELIAL CELLS 3-5 EPI/hpf (0-5) URINE BACTERIA TRACE (<1+) (NONE SEEN) URINE COMMENT CULT NOT INDICATED 2+ MUCOUSURINE CULTURES ARE SET-UP BASED ON THE FOLLOWING CRITERIA:POSITIVE NITRITEPOSITIVE LEUKOCYTE ESTERASEGREATER THAN 10 WHITE BLOOD CELLSMODERATE (2+) OR GREATER BACTERIA Urine: (DOMITILA: 08/27/2016 10:00) ( [facility] 08/27/2016 10:18) Final results Test Result Flag Units (Reference) URINE NEGATIVE CBC w Diff: (DOMITILA: 08/27/2016 10:15) ( [facility] 08/27/2016 10:28) Final results Test Result Flag Units (Reference) WHITE BLOOD COUNT 5.2 K/uL (4.5-11.5) RED BLOOD COUNT 4.38 M/uL (4.00-5.20) HEMOGLOBIN 13.7 gm/dL (12.0-16.0) HEMATOCRIT 40.2 % (36.0-46.0) MEAN CELL VOLUME 92 fL (80-100) MEAN CORPUSCULAR HGB 31 pg (26-34) MEAN CORPUSCULAR HGB CONC 34 g/dL (31-37) RED CELL DISTRIBUTION WIDTH 11.7 % (11.6-14.8) PLATELET COUNT 132 L K/uL (150-400) NEUTROPHIL % 70.0 % (50-75) LYMPH % 22.5 L % (25-40) MONO % 6.8 % (3-14) EOSINOPHIL % 0.5 % (0-4) BASOPHIL % 0.2 % (0-2) CMP: (DOMITILA: 08/27/2016 10:15) ( MsgRcvd 08/27/2016 10:55) Final results Test Result Flag Units (Reference) GLUCOSE 93 mg/dL (70-110) BUN 10 mg/dL (7-18) CREATININE 0.7 mg/dL (0.6-1.3) Estimated GFR >60 mL/min Estimated GFR- >60 mL/min Note: Persistent reduction over 3 months in eGFR<60 mL/min/1.73 m2 defines CKD. Patients with eGFR values>=60 mL/min/1.73 m2 may also have CKD if evidence ofpersistent proteinuria. Additional information may be foundat www.kidney.org. SODIUM 140 mmol/L (136-145) POTASSIUM 3.6 mmol/L (3.5-5.1) CHLORIDE 106 mmol/L (98-107) CARBON DIOXIDE 22 mmol/L (21-32) CALCIUM 8.1 L mg/dL (8.5-10.1) TOTAL PROTEIN 6.8 g/dL (6.4-8.2) ALBUMIN 3.2 L g/dL (3.3-5.0) BILIRUBIN, TOTAL 0.3 mg/dL (0.0-1.0) ALKALINE PHOSPHATASE 80 U/L (46-116) AST (SGOT) 45 H U/L (15-37) ALT (SGPT) 46 U/L (12-78) LIPASE 176 U/L (73-393) AMYLASE 35 U/L (25-115) . PROGRESS AND PROCEDURES Course of Care: Pt with juan miguel B with poor po since diagnosis. PINEDA that has come and gone with the illness. Worse today likely due to poor po and the viral illness. NO sign of meningitis or encephalitis. No sign of pneumonia. Patient/family counseled. Disposition: Discharged. Condition: stable and improved. CLINICAL IMPRESSION Ongoing influenza B Poor po due to illness Vomiting due to PINEDA PINEDA due to viral illness and poor po. INSTRUCTIONS No strenuous activity. Rest. Do not work for two days until better. Drink plenty of fluids. Warnings: Further evaluation is necessary. SEDATIVE MEDICATION: You were given sedative medication during your visit. Do not drive or operate dangerous machinery. GENERAL WARNINGS: Return or contact your physician immediately if your condition worsens or changes unexpectedly, if not improving as expected, or if other problems arise. Your Current Medications: CONTINUE TAKING THE FOLLOWING MEDICATIONS: Tamiflu Oral. Prescription Medications: Zofran (orally disintegrating tablets) 4 mg: take 1 orally every 4 hours as needed for nausea. Dispense ten (10). No refill. Substitution is permissible. Oxycodone/APAP 5 mg/325 mg: take 1-2 tablets orally every 4 hours as needed for pain. Dispense fifteen (15). No refill. Soma 350 mg: take 1 orally every 6 hours as needed for pain. Dispense fifteen (15). No refill. Follow-up: Follow up with your doctor in two days if not better. Understanding of the discharge instructions verbalized by patient and family. (Electronically signed by Ruben Patrick MD 08/29/2016 20:50)
--- NOTE | 2016-08-27 12:33 | ED NURSING NOTES ---
Clinical Report - Nurses [facility] [address] [place] [address] 08/27/2016 9:51 [id number] TRI[facility] Triage time 10:01. Acuity: LEVEL 3. Chief Complaint: NAUSEA and VOMITING. 10:02 08/27/16. 10:02 08/27/16. Alert. No acute distress. ( Pt c/o N/V with PINEDA. Pt was seen here recently and). SEPSIS SCREEN: Sepsis Screen. Negative (no infection suspected/documented). --10:06 Maico Vargas R.N. 10:01 08/27/16. BP: 118/68. HR: 96. RR: 18. O2 saturation: 100% on room air. Temp: 98.7 F (oral). Pain level now: 12/20. --10:06 Maico Vargas R.N. Weight: 63.5 kg stated. Height/Length: 65 inches Per Patient. BMI: 23.3. --10:00 Maico Vargas R.N. Medications Tamiflu Oral. --10:05 Maico Vargas R.N. Medication/allergy information source: the patient. --10:06 Maico Vargas R.N. Allergies No Known Drug Allergy. --10:05 Maico Vargas R.N. History Arrived by private vehicle. Primary physician (Sep). 10:02 08/27/16. ( Thursday). Treatment BUSINESS INTEGRATION ANALYST: None. PAST MEDICAL HX: Last normal menstrual period now. Immunizations not up to date. SOCIAL HX: Never smoker. No alcohol use or drug use. No recent travel. She has had contact with a sick family member. No infectious disease exposure. ABUSE ASSESSMENT: No report of abuse. FALL RISK ASSESSMENT: Fall risk assessment completed. No fall risk identified. NUTRITIONAL RISK ASSESSMENT: The nutritional risk assessment revealed no deficiencies. FUNCTIONAL ASSESSMENT: Functional assessment: no impairments noted. LEARNING NEEDS ASSESSMENT: The learning needs assessment revealed no barriers. SKIN INTEGRITY ASSESSMENT: Skin integrity risk assessment completed. No skin integrity risk identified. --10:06 Maico Vargas R.N. PROBLEMS: Influenza. Biliary Colic. --10:05 Maico Vargas R.N. ADDITIONAL SURGERIES: Cholecystectomy. --10:05 Maico Vargas R.N. Assessment 10:08/27/16. --10:06 Maico Vargas R.N. Interventions 10:08/27/16. 10:08/27/16. ID and allergy band on patient. To treatment room. --10:06 Maico Vargas R.N. PHYSICAL ASSESSMENT 10:08/27/16. Ambulatory to room. GENERAL / NEURO / PSYCH: Appears in pain. RESPIRATORY: Respirations not labored. CVS: Capillary refill less than 2 seconds. SKIN: Skin is warm and dry. --10:06 Maico Vargas R.N. NURSING PROGRESS NOTES 10:08/27/2016 Site #1 started via IV in the right antecubital space with an 20g angiocath, with aseptic technique and good blood return; one attempt. Blood drawn: rainbow set. Labeled in the presence of the patient and sent to the lab. Saline lock flushed with 10 mL saline. --10:16 Maico Vargas R.N. 10:08/27/16. The plan of care for this patient has been created. carver hand, pulse oximeter and NIBP monitor placed on patient; monitor alarms on. Head of bed elevated. Two patient identifiers checked. Call light placed in reach. Side rails up x 2. Bed placed in lowest position. Brakes of bed on. Brakes of chair on. --10:06 Maico Vargas R.N. 10:08/27/16. Patient ready for evaluation- chart flagged and notification provided. --10:06 Maico Vargas R.N. 10:08/27/16. Patient ID band checked for patient name and birthdate: patient confirmed. Instructions provided to collect clean catch urine and patient verbalized understanding. Clean catch urine collected with return of yellow-colored urine; sample sent to lab for urinalysis, culture and HCG. Specimen labeled in the presence of the patient. --10:15 Maico Vargas R.N. 10:16 08/27/2016 Started bag #1 1000 mL IV Fluids IV NS (Saline); at 1000 mL/hr over 1 hour(s) via site #1. Allergies verified and confirmed 5 rights. IV patency established. IV site checked: no pain, redness, or swelling. IV flushed thoroughly pre- and post-medication administration. Completed per protocol. --10:16 Maico Vargas R.N. 10:16 08/27/2016 Zofran (Ondansetron HCl) IVP 4 mg given. via site #1. Allergies verified and confirmed 5 rights. IV patency established. IV site checked: no pain, redness, or swelling. IV flushed thoroughly pre- and post-medication administration. IVP given by RN. --10:16 Maico Vargas R.N. 10:16 08/27/16. BP: 105/61. HR: 85. RR: 14. O2 saturation: 100% on room air. --10:16 Maico Vargas R.N. 10:16 08/27/16. --10:16 Maico Vargas R.N. 11:06 08/27/2016 IV Fluids IV NS Discontinued: bag #1 infused. Total amount infused: 1000 mL. IV patency established. IV site checked: no pain, redness, or swelling. IV flushed thoroughly. --11:06 Maico Vargas R.N. 11:12 08/27/2016 Dilaudid (HYDROmorphone HCl PF) IVP 0.5 mg given over 2 minute(s) via site #1. Allergies verified, confirmed 5 rights and sedative warning given to the patient. IV patency established. IV site checked: no pain, redness, or swelling. IV flushed thoroughly pre- and post-medication administration. IVP given by RN. --11:12 Maico Vargas R.N. 11:12 08/27/2016 Ativan (LORazepam) IVP 0.5 mg given over 2 minute(s) via site #1. Allergies verified, confirmed 5 rights and sedative warning given to the patient. IV patency established. IV site checked: no pain, redness, or swelling. IV flushed thoroughly pre- and post-medication administration. IVP given by RN. --11:12 Maico Vargas R.N. 11:31 08/27/16. Pulse oximeter and NIBP monitor placed on patient. --11:31 Maico Vargas R.N. 11:08/27/16. HR: 79. O2 saturation: 100% on room air. --11: Maico Vargas R.N. 11:08/27/16. --11:31 Maico Vargas R.N. 12:37 08/27/2016 Dilaudid (HYDROmorphone HCl PF) IVP 0.5 mg given over 2 minute(s) via site #1. Allergies verified, confirmed 5 rights and sedative warning given to the patient and patient's family. IV patency established. IV site checked: no pain, redness, or swelling. IV flushed thoroughly pre- and post-medication administration. IVP given by RN. --12:37 Maico Vargas R.N. 12:37 08/27/2016 Ativan (LORazepam) IVP 0.5 mg given over 2 minute(s) via site #1. Allergies verified, confirmed 5 rights and sedative warning given to the patient. IV patency established. IV site checked: no pain, redness, or swelling. IV flushed thoroughly pre- and post-medication administration. IVP given by RN. --12:37 Maico Vargas R.N. DISPOSITION / DISCHARGE 12:42 08/27/2016 Site #1 removed upon discharge. Catheter intact. --12:42 Maico Vargas R.N. 12:42 08/27/16. Condition at departure: improved. The goals identified in the patient's plan of care were met. No learning barriers present. Discharge instructions provided and reviewed with the patient and family. Reviewed warnings. Reviewed medication(s). Treatments reviewed. Patient and family verbalized understanding. Written instructions provided in American. The patient was discharged by the physician. She was discharged home and accompanied by family. She left the Emergency Department ambulatory and via private vehicle. Family member driving. FALL RISK ASSESSMENT: Fall risk assessment completed. No fall risk identified. --12:42 Maico Vargas R.N. 12:42 08/27/16. BP: 104/72. HR: 79. RR: 14. O2 saturation: 100% on room air. Temp: 98.1 F (oral). --12:42 Maico Vargas R.N. 12:43 08/27/16. Departure time: 12:43. --12:43 Maico Vargas R.N. Locked/Released at 08/27/2016 12:45 by Maico Vargas R.N.
--- NOTE | 2016-08-29 20:50 | ED MAR SUMMARY ---
..... Medication Administration Record [facility] [address] [place] [place] [address] Patient: COLIN QUIROS Visit ID: [id number] 25y, F Weight: 63.5 kg Height/Length: 65 in BMI: 23.3 ALLERGIES: No Known Drug Allergy Start 10:08/27/2016 Maico Vargas R.N., Stop 11:08/27/2016 Maico Vargas R.N. Medication Administered: IV NS (SALINE), Dose: IV Fluids over 1 hour(s), Rate: 1000 mL/hr, Dispensed: 1000 mL bag, Site: #1 right AC. Medication Ordered: IV NS : initial bolus none -, then 1000 mL/hr for X1 (NOW). Given 10:16 08/27/2016 Maico Vargas R.N. Medication Administered: ZOFRAN [IVP] (ONDANSETRON HCL), Dose: 4 mg IVP, Site: #1 right AC. Medication Ordered: Zofran IV 4 mg (NOW). Given 11:08/27/2016 Maico Vargas R.N. Medication Administered: DILAUDID [IVP] (HYDROMORPHONE HCL PF), Dose: 0.5 mg IVP over 2 minute(s), Site: #1 right AC. Medication Ordered: Dilaudid IV 0.5 mg (NOW). Given 11:08/27/2016 Maico Vargas R.N. Medication Administered: ATIVAN [IVP] (LORAZEPAM), Dose: 0.5 mg IVP over 2 minute(s), Site: #1 right AC. Medication Ordered: Ativan IV 0.5 mg (NOW). Given 12:08/27/2016 Maico Vargas R.N. Medication Administered: DILAUDID [IVP] (HYDROMORPHONE HCL PF), Dose: 0.5 mg IVP over 2 minute(s), Site: #1 right AC. Medication Ordered: Dilaudid IV 0.5 mg (NOW). Given 12:08/27/2016 Maico Vargas R.N. Medication Administered: ATIVAN [IVP] (LORAZEPAM), Dose: 0.5 mg IVP over 2 minute(s), Site: #1 right AC. Medication Ordered: Ativan IV 0.5 mg (NOW).
--- NOTE | 2016-08-29 20:50 | ED DISCHARGE INSTRUCTIONS ---
Patient: COLIN QUIROS General Instructions [facility] VisitID: [id number] [address] [place] [address] 25y, F Registration Date/Time: 08/27/2016 Ongoing influenza B Poor po due to illness Vomiting due to PINEDA PINEDA due to viral illness and poor po. INSTRUCTIONS No strenuous activity. Rest. Do not work for two days until better. Drink plenty of fluids. Warnings: Further evaluation is necessary. SEDATIVE MEDICATION: You were given sedative medication during your visit. Do not drive or operate dangerous machinery. GENERAL WARNINGS: Return or contact your physician immediately if your condition worsens or changes unexpectedly, if not improving as expected, or if other problems arise. Your Current Medications: CONTINUE TAKING THE FOLLOWING MEDICATIONS: Tamiflu Oral. Prescription Medications: Zofran (orally disintegrating tablets) 4 mg: take 1 orally every 4 hours as needed for nausea. Dispense ten (10). No refill. Substitution is permissible. Oxycodone/APAP 5 mg/325 mg: take 1-2 tablets orally every 4 hours as needed for pain. Dispense fifteen (15). No refill. Soma 350 mg: take 1 orally every 6 hours as needed for pain. Dispense fifteen (15). No refill. Follow-up: Follow up with your doctor in two days if not better. Understanding of the discharge instructions verbalized by patient and family. ADDITIONAL INFORMATION Ondansetron Oral disintegrating tablet What is this medicine? ONDANSETRON (on CASPER se kamron) is used to treat nausea and vomiting caused by chemotherapy. It is also used to prevent or treat nausea and vomiting after surgery. How should I use this medicine? These tablets are made to dissolve in the mouth. Do not try to push the tablet through the foil backing. With dry hands, peel away the foil backing and gently remove the tablet. Place the tablet in the mouth and allow it to dissolve, then swallow. While you may take these tablets with water, it is not necessary to do so. Talk to your associate faculty regarding the use of this medicine in children. Special care may be needed. What side effects may I notice from receiving this medicine? Side effects that you should report to your doctor or health gericare aide teacher as soon as possible: allergic reactions like skin rash, itching or hives, swelling of the face, lips, or tongue breathing problems dizziness fast or irregular heartbeat feeling faint or lightheaded, falls fever and chills swelling of the hands and feet tightness in the chest Side effects that usually do not require medical attention (report to your doctor or health gericare aide teacher if they continue or are bothersome): constipation or diarrhea headache What may interact with this medicine? Do not take this medicine with any of the following medications: -apomorphine -cisapride -dofetilide -dronedarone -pimozide -thioridazine -ziprasidone This medicine may also interact with the following medications: -carbamazepine -phenytoin -rifampicin -tramadol -other medicines that prolong the QT interval (cause an abnormal heart rhythm) What if I miss a dose? If you miss a dose, take it as soon as you can. If it is almost time for your next dose, take only that dose. Do not take double or extra doses. Where should I keep my medicine? Keep out of the reach of children. Store between 2 and 30 degrees C (36 and 86 degrees F). Throw away any unused medicine after the expiration date. What should I tell my health care provider before I take this medicine? They need to know if you have any of these conditions: heart disease history of irregular heartbeat liver disease low levels of magnesium or potassium in the blood an unusual or allergic reaction to ondansetron, granisetron, other medicines, foods, dyes, or preservatives or trying to get breast-feeding What should I watch for while using this medicine? Check with your doctor or health gericare aide teacher as soon as you can if you have any sign of an allergic reaction. Oxycodone Hydrochloride, Acetaminophen Oral tablet What is this medicine? ACETAMINOPHEN; OXYCODONE (a set a YARA kevin fen; ox i KOE done) is a pain reliever. It is used to treat mild to moderate pain. How should I use this medicine? Take this medicine by mouth with a full glass of water. Follow the directions on the prescription label. Take your medicine at regular intervals. Do not take your medicine more often than directed. Talk to your associate faculty regarding the use of this medicine in children. Special care may be needed. Patients over 65 years old may have a stronger reaction and need a smaller dose. What side effects may I notice from receiving this medicine? Side effects that you should report to your doctor or health gericare aide teacher as soon as possible: allergic reactions like skin rash, itching or hives, swelling of the face, lips, or tongue breathing difficulties, wheezing confusion light headedness or fainting spells severe stomach pain yellowing of the skin or the whites of the eyes Side effects that usually do not require medical attention (report to your doctor or health gericare aide teacher if they continue or are bothersome): dizziness drowsiness nausea vomiting What may interact with this medicine? alcohol antihistamines barbiturates like amobarbital, butalbital, butabarbital, methohexital, pentobarbital, phenobarbital, thiopental, and secobarbital benztropine drugs for bladder problems like solifenacin, trospium, oxybutynin, tolterodine, hyoscyamine, and methscopolamine drugs for breathing problems like ipratropium and tiotropium drugs for certain stomach or intestine problems like propantheline, homatropine methylbromide, glycopyrrolate, atropine, belladonna, and dicyclomine general anesthetics like etomidate, ketamine, nitrous oxide, propofol, desflurane, enflurane, halothane, isoflurane, and sevoflurane medicines for depression, anxiety, or psychotic disturbances medicines for sleep muscle relaxants naltrexone narcotic medicines (opiates) for pain phenothiazines like perphenazine, thioridazine, chlorpromazine, mesoridazine, fluphenazine, prochlorperazine, promazine, and trifluoperazine scopolamine tramadol trihexyphenidyl What if I miss a dose? If you miss a dose, take it as soon as you can. If it is almost time for your next dose, take only that dose. Do not take double or extra doses. Where should I keep my medicine? Keep out of the reach of children. This medicine can be abused. Keep your medicine in a safe place to protect it from theft. Do not share this medicine with anyone. Selling or giving away this medicine is dangerous and against the law. Store at room temperature between 20 and 25 degrees C (68 and 77 degrees F). Keep container tightly closed. Protect from light. This medicine may cause accidental overdose and if it is taken by other adults, children, or pets. Flush any unused medicine down the toilet to reduce the chance of harm. Do not use the medicine after the expiration date. What should I tell my health care provider before I take this medicine? They need to know if you have any of these conditions: brain tumor Crohn's disease, inflammatory bowel disease, or ulcerative colitis drink more than 3 alcohol containing drinks per day drug abuse or addiction head injury heart or circulation problems kidney disease or problems going to the bathroom liver disease lung disease, asthma, or breathing problems an unusual or allergic reaction to acetaminophen, oxycodone, other opioid analgesics, other medicines, foods, dyes, or preservatives or trying to get breast-feeding What should I watch for while using this medicine? Tell your doctor or health gericare aide teacher if your pain does not go away, if it gets worse, or if you have new or a different type of pain. You may develop tolerance to the medicine. Tolerance means that you will need a higher dose of the medication for pain relief. Tolerance is normal and is expected if you take this medicine for a long time. Do not suddenly stop taking your medicine because you may develop a severe reaction. Your body becomes used to the medicine. This does NOT mean you are addicted. Addiction is a behavior related to getting and using a drug for a non-medical reason. If you have pain, you have a medical reason to take pain medicine. Your doctor will tell you how much medicine to take. If your doctor wants you to stop the medicine, the dose will be slowly lowered over time to avoid any side effects. You may get drowsy or dizzy. Do not drive, use machinery, or do anything that needs mental alertness until you know how this medicine affects you. Do not stand or sit up quickly, especially if you are an older patient. This reduces the risk of dizzy or fainting spells. Alcohol may interfere with the effect of this medicine. Avoid alcoholic drinks. There are different types of narcotic medicines (opiates) for pain. If you take more than one type at the same time, you may have more side effects. Give your health care provider a list of all medicines you use. Your doctor will tell you how much medicine to take. Do not take more medicine than directed. Call emergency for help if you have problems breathing. The medicine will cause constipation. Try to have a bowel movement at least every 2 to 3 days. If you do not have a bowel movement for 3 days, call your doctor or health gericare aide teacher. Do not take Tylenol (acetaminophen) or medicines that have acetaminophen with this medicine. Too much acetaminophen can be very dangerous. Many nonprescription medicines contain acetaminophen. Always read the labels carefully to avoid taking more acetaminophen. Carisoprodol Oral tablet What is this medicine? CARISOPRODOL (ramu jaden roger PROE dole) is a muscle relaxer. It is used to treat pain and stiffness in muscles caused by strains, sprains, or other injury. How should I use this medicine? Take this medicine by mouth. Swallow it with a full glass of water. Follow the directions on the prescription label. If it upsets your stomach, take it with food or milk. Do not take more medicine than you are told to take. Talk to your associate faculty regarding the use of this medicine in children. Special care may be needed. This medicine is not usually used in children younger than 12 years. What side effects may I notice from receiving this medicine? Side effects that you should report to your doctor or health gericare aide teacher as soon as possible: allergic reactions like skin rash, itching or hives, swelling of the face, lips, or tongue breathing problems confusion feeling faint or lightheaded, falls Side effects that usually do not require medical attention (report to your doctor or health gericare aide teacher if they continue or are bothersome): headache nausea, vomiting What may interact with this medicine? alcohol or medicines that contain alcohol antihistamines medicines for depression, anxiety, and other mental conditions medicines for pain like codeine, oxycodone, tramadol, and propoxyphene medicines for sleep phenobarbital What if I miss a dose? If you miss a dose, take it as soon as you can. If it is almost time for your next dose, take only that dose. Do not take double or extra doses. Where should I keep my medicine? Keep out of the reach of children. Store at room temperature between 15 and 30 degrees C (59 and 86 degrees F). Keep container tightly closed. Throw away any unused medicine after the expiration date. What should I tell my health care provider before I take this medicine? They need to know if you have any of these conditions: drug abuse or addiction kidney disease liver disease porphyria an unusual or allergic reaction to carisoprodol, carbamate such as meprobamate, other medicines, foods, dyes, or preservatives or trying to get breast-feeding What should I watch for while using this medicine? Check with your doctor or health gericare aide teacher if your condition does not improve within 1 to 3 weeks. You may get drowsy or dizzy when you first start taking the medicine or change doses. Do not drive, use machinery, or do anything that may be dangerous until you know how the medicine affects you. Stand or sit up slowly. You have been given the following additional information: Ondansetron Oral disintegrating tablet Oxycodone Hydrochloride, Acetaminophen Oral tablet Carisoprodol Oral tablet No strenuous activity. Rest. Do not work for two days until better. (Electronically signed by Ruben Patrick MD 08/29/2016 20:50)
--- NOTE | 2016-08-29 20:50 | ED MED RECONCILIATION SUMMARY ---
Patient: COLIN QUIROS Medication Reconciliation Report [facility] VisitID: [id number] [address] [place] [address] 25y, F Registration Date/Time: 08/27/2016 Weight: 63.5 kg Height/Length: 65 in. BMI: 23.3 ALLERGIES: No Known Drug Allergy The patient's Home Medications are listed below: CONTINUE TAKING THE FOLLOWING MEDICATIONS: Tamiflu Oral The source(s) of the original Home Medication information: patient The following Medications were given to the patient in the Emergency Department: IV NS IV Fluids bolus 0, then 1000 mL/hr, administered: 08/27/2016 10:16:00 AM Zofran [IVP] IVP 4 mg, administered: 08/27/2016 10:16:00 AM Dilaudid [IVP] IVP 0.5 mg, administered: 08/27/2016 11:12:00 AM Ativan [IVP] IVP 0.5 mg, administered: 08/27/2016 11:12:00 AM Dilaudid [IVP] IVP 0.5 mg, administered: 08/27/2016 12:37:00 PM Ativan [IVP] IVP 0.5 mg, administered: 08/27/2016 12:37:00 PM The following Medications were prescribed to the patient: Zofran (orally disintegrating tablets) 4 mg: take 1 orally every 4 hours as needed for nausea. Dispense ten (10). No refill. Substitution is permissible. -- Ruben Patrick MD Oxycodone/APAP 5 mg/325 mg: take 1-2 tablets orally every 4 hours as needed for pain. Dispense fifteen (15). No refill. -- Ruben Patrick MD Soma 350 mg: take 1 orally every 6 hours as needed for pain. Dispense fifteen (15). No refill. -- Ruben Patrick MD
--- NOTE | 2016-08-29 20:50 | ED MAR SUMMARY ---
..... Medication Administration Record [facility] [address] [place] [place] [address] Patient: COLIN QUIROS Visit ID: [id number] 25y, F Weight: 63.5 kg Height/Length: 65 in BMI: 23.3 ALLERGIES: No Known Drug Allergy Start 10:08/27/2016 Maico Vargas R.N., Stop 11:08/27/2016 Maico Vargas R.N. Medication Administered: IV NS (SALINE), Dose: IV Fluids over 1 hour(s), Rate: 1000 mL/hr, Dispensed: 1000 mL bag, Site: #1 right AC. Medication Ordered: IV NS : initial bolus none -, then 1000 mL/hr for X1 (NOW). Given 10:16 08/27/2016 Maico Vargas R.N. Medication Administered: ZOFRAN [IVP] (ONDANSETRON HCL), Dose: 4 mg IVP, Site: #1 right AC. Medication Ordered: Zofran IV 4 mg (NOW). Given 11:08/27/2016 Maico Vargas R.N. Medication Administered: DILAUDID [IVP] (HYDROMORPHONE HCL PF), Dose: 0.5 mg IVP over 2 minute(s), Site: #1 right AC. Medication Ordered: Dilaudid IV 0.5 mg (NOW). Given 11:08/27/2016 Maico Vargas R.N. Medication Administered: ATIVAN [IVP] (LORAZEPAM), Dose: 0.5 mg IVP over 2 minute(s), Site: #1 right AC. Medication Ordered: Ativan IV 0.5 mg (NOW). Given 12:08/27/2016 Maico Vargas R.N. Medication Administered: DILAUDID [IVP] (HYDROMORPHONE HCL PF), Dose: 0.5 mg IVP over 2 minute(s), Site: #1 right AC. Medication Ordered: Dilaudid IV 0.5 mg (NOW). Given 12:08/27/2016 Maico Vargas R.N. Medication Administered: ATIVAN [IVP] (LORAZEPAM), Dose: 0.5 mg IVP over 2 minute(s), Site: #1 right AC. Medication Ordered: Ativan IV 0.5 mg (NOW).
--- NOTE | 2016-08-29 20:50 | ED DISCHARGE INSTRUCTIONS ---
Patient: COLIN QUIROS General Instructions [facility] VisitID: [id number] [address] [place] [address] 25y, F Registration Date/Time: 08/27/2016 Ongoing influenza B Poor po due to illness Vomiting due to PINEDA PINEDA due to viral illness and poor po. INSTRUCTIONS No strenuous activity. Rest. Do not work for two days until better. Drink plenty of fluids. Warnings: Further evaluation is necessary. SEDATIVE MEDICATION: You were given sedative medication during your visit. Do not drive or operate dangerous machinery. GENERAL WARNINGS: Return or contact your physician immediately if your condition worsens or changes unexpectedly, if not improving as expected, or if other problems arise. Your Current Medications: CONTINUE TAKING THE FOLLOWING MEDICATIONS: Tamiflu Oral. Prescription Medications: Zofran (orally disintegrating tablets) 4 mg: take 1 orally every 4 hours as needed for nausea. Dispense ten (10). No refill. Substitution is permissible. Oxycodone/APAP 5 mg/325 mg: take 1-2 tablets orally every 4 hours as needed for pain. Dispense fifteen (15). No refill. Soma 350 mg: take 1 orally every 6 hours as needed for pain. Dispense fifteen (15). No refill. Follow-up: Follow up with your doctor in two days if not better. Understanding of the discharge instructions verbalized by patient and family. ADDITIONAL INFORMATION Ondansetron Oral disintegrating tablet What is this medicine? ONDANSETRON (on CASPER se kamron) is used to treat nausea and vomiting caused by chemotherapy. It is also used to prevent or treat nausea and vomiting after surgery. How should I use this medicine? These tablets are made to dissolve in the mouth. Do not try to push the tablet through the foil backing. With dry hands, peel away the foil backing and gently remove the tablet. Place the tablet in the mouth and allow it to dissolve, then swallow. While you may take these tablets with water, it is not necessary to do so. Talk to your stone and concrete washer regarding the use of this medicine in children. Special care may be needed. What side effects may I notice from receiving this medicine? Side effects that you should report to your doctor or health home health care worker as soon as possible: allergic reactions like skin rash, itching or hives, swelling of the face, lips, or tongue breathing problems dizziness fast or irregular heartbeat feeling faint or lightheaded, falls fever and chills swelling of the hands and feet tightness in the chest Side effects that usually do not require medical attention (report to your doctor or health home health care worker if they continue or are bothersome): constipation or diarrhea headache What may interact with this medicine? Do not take this medicine with any of the following medications: -apomorphine -cisapride -dofetilide -dronedarone -pimozide -thioridazine -ziprasidone This medicine may also interact with the following medications: -carbamazepine -phenytoin -rifampicin -tramadol -other medicines that prolong the QT interval (cause an abnormal heart rhythm) What if I miss a dose? If you miss a dose, take it as soon as you can. If it is almost time for your next dose, take only that dose. Do not take double or extra doses. Where should I keep my medicine? Keep out of the reach of children. Store between 2 and 30 degrees C (36 and 86 degrees F). Throw away any unused medicine after the expiration date. What should I tell my health care provider before I take this medicine? They need to know if you have any of these conditions: heart disease history of irregular heartbeat liver disease low levels of magnesium or potassium in the blood an unusual or allergic reaction to ondansetron, granisetron, other medicines, foods, dyes, or preservatives or trying to get breast-feeding What should I watch for while using this medicine? Check with your doctor or health home health care worker as soon as you can if you have any sign of an allergic reaction. Oxycodone Hydrochloride, Acetaminophen Oral tablet What is this medicine? ACETAMINOPHEN; OXYCODONE (a set a YARA kevin fen; ox i KOE done) is a pain reliever. It is used to treat mild to moderate pain. How should I use this medicine? Take this medicine by mouth with a full glass of water. Follow the directions on the prescription label. Take your medicine at regular intervals. Do not take your medicine more often than directed. Talk to your stone and concrete washer regarding the use of this medicine in children. Special care may be needed. Patients over 65 years old may have a stronger reaction and need a smaller dose. What side effects may I notice from receiving this medicine? Side effects that you should report to your doctor or health home health care worker as soon as possible: allergic reactions like skin rash, itching or hives, swelling of the face, lips, or tongue breathing difficulties, wheezing confusion light headedness or fainting spells severe stomach pain yellowing of the skin or the whites of the eyes Side effects that usually do not require medical attention (report to your doctor or health home health care worker if they continue or are bothersome): dizziness drowsiness nausea vomiting What may interact with this medicine? alcohol antihistamines barbiturates like amobarbital, butalbital, butabarbital, methohexital, pentobarbital, phenobarbital, thiopental, and secobarbital benztropine drugs for bladder problems like solifenacin, trospium, oxybutynin, tolterodine, hyoscyamine, and methscopolamine drugs for breathing problems like ipratropium and tiotropium drugs for certain stomach or intestine problems like propantheline, homatropine methylbromide, glycopyrrolate, atropine, belladonna, and dicyclomine general anesthetics like etomidate, ketamine, nitrous oxide, propofol, desflurane, enflurane, halothane, isoflurane, and sevoflurane medicines for depression, anxiety, or psychotic disturbances medicines for sleep muscle relaxants naltrexone narcotic medicines (opiates) for pain phenothiazines like perphenazine, thioridazine, chlorpromazine, mesoridazine, fluphenazine, prochlorperazine, promazine, and trifluoperazine scopolamine tramadol trihexyphenidyl What if I miss a dose? If you miss a dose, take it as soon as you can. If it is almost time for your next dose, take only that dose. Do not take double or extra doses. Where should I keep my medicine? Keep out of the reach of children. This medicine can be abused. Keep your medicine in a safe place to protect it from theft. Do not share this medicine with anyone. Selling or giving away this medicine is dangerous and against the law. Store at room temperature between 20 and 25 degrees C (68 and 77 degrees F). Keep container tightly closed. Protect from light. This medicine may cause accidental overdose and if it is taken by other adults, children, or pets. Flush any unused medicine down the toilet to reduce the chance of harm. Do not use the medicine after the expiration date. What should I tell my health care provider before I take this medicine? They need to know if you have any of these conditions: brain tumor Crohn's disease, inflammatory bowel disease, or ulcerative colitis drink more than 3 alcohol containing drinks per day drug abuse or addiction head injury heart or circulation problems kidney disease or problems going to the bathroom liver disease lung disease, asthma, or breathing problems an unusual or allergic reaction to acetaminophen, oxycodone, other opioid analgesics, other medicines, foods, dyes, or preservatives or trying to get breast-feeding What should I watch for while using this medicine? Tell your doctor or health home health care worker if your pain does not go away, if it gets worse, or if you have new or a different type of pain. You may develop tolerance to the medicine. Tolerance means that you will need a higher dose of the medication for pain relief. Tolerance is normal and is expected if you take this medicine for a long time. Do not suddenly stop taking your medicine because you may develop a severe reaction. Your body becomes used to the medicine. This does NOT mean you are addicted. Addiction is a behavior related to getting and using a drug for a non-medical reason. If you have pain, you have a medical reason to take pain medicine. Your doctor will tell you how much medicine to take. If your doctor wants you to stop the medicine, the dose will be slowly lowered over time to avoid any side effects. You may get drowsy or dizzy. Do not drive, use machinery, or do anything that needs mental alertness until you know how this medicine affects you. Do not stand or sit up quickly, especially if you are an older patient. This reduces the risk of dizzy or fainting spells. Alcohol may interfere with the effect of this medicine. Avoid alcoholic drinks. There are different types of narcotic medicines (opiates) for pain. If you take more than one type at the same time, you may have more side effects. Give your health care provider a list of all medicines you use. Your doctor will tell you how much medicine to take. Do not take more medicine than directed. Call emergency for help if you have problems breathing. The medicine will cause constipation. Try to have a bowel movement at least every 2 to 3 days. If you do not have a bowel movement for 3 days, call your doctor or health home health care worker. Do not take Tylenol (acetaminophen) or medicines that have acetaminophen with this medicine. Too much acetaminophen can be very dangerous. Many nonprescription medicines contain acetaminophen. Always read the labels carefully to avoid taking more acetaminophen. Carisoprodol Oral tablet What is this medicine? CARISOPRODOL (ramu jaden roger PROE dole) is a muscle relaxer. It is used to treat pain and stiffness in muscles caused by strains, sprains, or other injury. How should I use this medicine? Take this medicine by mouth. Swallow it with a full glass of water. Follow the directions on the prescription label. If it upsets your stomach, take it with food or milk. Do not take more medicine than you are told to take. Talk to your stone and concrete washer regarding the use of this medicine in children. Special care may be needed. This medicine is not usually used in children younger than 12 years. What side effects may I notice from receiving this medicine? Side effects that you should report to your doctor or health home health care worker as soon as possible: allergic reactions like skin rash, itching or hives, swelling of the face, lips, or tongue breathing problems confusion feeling faint or lightheaded, falls Side effects that usually do not require medical attention (report to your doctor or health home health care worker if they continue or are bothersome): headache nausea, vomiting What may interact with this medicine? alcohol or medicines that contain alcohol antihistamines medicines for depression, anxiety, and other mental conditions medicines for pain like codeine, oxycodone, tramadol, and propoxyphene medicines for sleep phenobarbital What if I miss a dose? If you miss a dose, take it as soon as you can. If it is almost time for your next dose, take only that dose. Do not take double or extra doses. Where should I keep my medicine? Keep out of the reach of children. Store at room temperature between 15 and 30 degrees C (59 and 86 degrees F). Keep container tightly closed. Throw away any unused medicine after the expiration date. What should I tell my health care provider before I take this medicine? They need to know if you have any of these conditions: drug abuse or addiction kidney disease liver disease porphyria an unusual or allergic reaction to carisoprodol, carbamate such as meprobamate, other medicines, foods, dyes, or preservatives or trying to get breast-feeding What should I watch for while using this medicine? Check with your doctor or health home health care worker if your condition does not improve within 1 to 3 weeks. You may get drowsy or dizzy when you first start taking the medicine or change doses. Do not drive, use machinery, or do anything that may be dangerous until you know how the medicine affects you. Stand or sit up slowly. You have been given the following additional information: Ondansetron Oral disintegrating tablet Oxycodone Hydrochloride, Acetaminophen Oral tablet Carisoprodol Oral tablet No strenuous activity. Rest. Do not work for two days until better. (Electronically signed by Ruben Patrick MD 08/29/2016 20:50)
--- NOTE | 2016-08-29 20:50 | ED MED RECONCILIATION SUMMARY ---
Patient: COLIN QUIROS Medication Reconciliation Report [facility] VisitID: [id number] [address] [place] [address] 25y, F Registration Date/Time: 08/27/2016 Weight: 63.5 kg Height/Length: 65 in. BMI: 23.3 ALLERGIES: No Known Drug Allergy The patient's Home Medications are listed below: CONTINUE TAKING THE FOLLOWING MEDICATIONS: Tamiflu Oral The source(s) of the original Home Medication information: patient The following Medications were given to the patient in the Emergency Department: IV NS IV Fluids bolus 0, then 1000 mL/hr, administered: 08/27/2016 10:16:00 AM Zofran [IVP] IVP 4 mg, administered: 08/27/2016 10:16:00 AM Dilaudid [IVP] IVP 0.5 mg, administered: 08/27/2016 11:12:00 AM Ativan [IVP] IVP 0.5 mg, administered: 08/27/2016 11:12:00 AM Dilaudid [IVP] IVP 0.5 mg, administered: 08/27/2016 12:37:00 PM Ativan [IVP] IVP 0.5 mg, administered: 08/27/2016 12:37:00 PM The following Medications were prescribed to the patient: Zofran (orally disintegrating tablets) 4 mg: take 1 orally every 4 hours as needed for nausea. Dispense ten (10). No refill. Substitution is permissible. -- Ruben Patrick MD Oxycodone/APAP 5 mg/325 mg: take 1-2 tablets orally every 4 hours as needed for pain. Dispense fifteen (15). No refill. -- Ruben Patrick MD Soma 350 mg: take 1 orally every 6 hours as needed for pain. Dispense fifteen (15). No refill. -- Ruben Patrick MD
== END 2016-08-27 12:43 | disposition home or self-care (01) ==
LOC: ED SRH 09:50
DX: J10.1 Influenza due to other identified influenza virus with other respiratory manifestations (principal); R11.2 Nausea with vomiting, unspecified; R51 Headache
CPT/HCPCS: 90004; 90100; 92235; 92530; 93070; 95059

== ENCOUNTER 2016-11-29 21:49 | Emergency (ER) | payer SELFPAY ==
--- NOTE | 2016-11-29 22:56 | ED ORDER SUMMARY ---
..... Patient: COLIN QUIRSO OrderSheet [facility] VisitID: [id number] [address] [place] [address] 26y, F Registration Date/Time: 11/29/2016 ORDER SHEET Weight: 65.7 kg (stated) Allergies: No Known Drug Allergy GENERAL ORDERS: CBC w Diff Urgent (22:08 11/29/2016 CBradburn R.N. per protocol) (22:08 CBradburn R.N.) CMP Urgent (22:11/29/2016 CBradburn R.N. per protocol) (22:08 CBradburn R.N.) UA-Culture if indicated Urgent (22:11/29/2016 CBradburn R.N. per protocol) (22:08 CBradburn R.N.) Urine Urgent (22:11/29/2016 CBradburn R.N. per protocol) (22:08 CBradburn R.N.) MEDICATION ORDERS: IV FLUIDS: IV Saline Lock (22:08 11/29/2016 CBradburn R.N. per protocol) (22:09 CBradburn R.N.) ORDER SHEET NOTES: [Electronically signed by Aurelia Harden R.N. (23:24 11/29/2016)] [Electronically signed by Ruben Patrick MD (21:53 12/02/2016)] [Electronically locked/signed by Aurelia Harden R.N. (23:24 11/29/2016)]
--- NOTE | 2016-11-29 22:56 | ED ORDER SUMMARY ---
..... Patient: COLIN QUIROS OrderSheet [facility] VisitID: [id number] [address] [place] [address] 26y, F Registration Date/Time: 11/29/2016 ORDER SHEET Weight: 65.7 kg (stated) Allergies: No Known Drug Allergy GENERAL ORDERS: CBC w Diff Urgent (22:08 11/29/2016 CBradburn R.N. per protocol) (22:08 CBradburn R.N.) CMP Urgent (22:11/29/2016 CBradburn R.N. per protocol) (22:08 CBradburn R.N.) UA-Culture if indicated Urgent (22:11/29/2016 CBradburn R.N. per protocol) (22:08 CBradburn R.N.) Urine Urgent (22:11/29/2016 CBradburn R.N. per protocol) (22:08 CBradburn R.N.) MEDICATION ORDERS: IV FLUIDS: IV Saline Lock (22:08 11/29/2016 CBradburn R.N. per protocol) (22:09 CBradburn R.N.) ORDER SHEET NOTES: [Electronically signed by Aurelia Harden R.N. (23:24 11/29/2016)] [Electronically signed by Ruben Patrick MD (21:53 12/02/2016)] [Electronically locked/signed by Aurelia Harden R.N. (23:24 11/29/2016)]
--- NOTE | 2016-11-29 22:56 | ED CLINICAL REPORT ---
Clinical Report - Physicians/Mid Levels [facility] [address] [place] [address] 11/29/2016 21:49 Patient: COLIN QUIROS Time Seen: 22:07 Nov 29 2016. Arrived- By private vehicle. Historian- patient. HISTORY OF PRESENT ILLNESS Chief Complaint: VAGINAL BLEEDING. (( strong back pain last night and started bleeding today, took test faint positive and another today with positive).). Still present. The symptoms are described as moderate. Modifying factors. Not worsened by anything. Not relieved by anything. The patient has had mild, crampy, intermittent abdominal pain. No nausea, vomiting or radiation of abdominal pain to the back and abnormal bleeding described as spotting. No flank pain, pain with urination, urinary frequency, urgency of urination or hematuria. Sexually active. Does not use control measures. Similar symptoms previously: None. Recent medical care: Not recently seen/assessed. REVIEW OF SYSTEMS No nausea, vomiting, diarrhea, black stools or headache. No fever, chills, sore throat, cough or chest pain. No skin rash or enlarged lymph nodes. Last normal menstrual period- October 28 2016. 1. Para 1. Sexual history - sexually active. No contraception. All systems otherwise negative, except as recorded above. PAST HISTORY ( Sick Contact. Influenza. Biliary Colic. LNMP Cholecystectomy). Medications: None. Allergies: No Known Drug Allergy. SOCIAL HISTORY Never smoker. Occasional alcohol use. No drug use. ADDITIONAL NOTES The nursing notes have been reviewed. PHYSICAL EXAM Vital Signs: 11/29/2016 21:58 BP: 122/71. HR: 72. RR: 18. O2 saturation: 99%. Temp: 97.9 F. Pain level now: 10. Appearance: Alert. No acute distress. Anxious. ENT: Pharynx normal. Neck: Neck supple. CVS: Heart sounds normal. Respiratory: No respiratory distress. Breath sounds normal. Chest nontender. Abdomen: Soft and nontender. Bowel sounds normal. Back: No CVA tenderness. Skin: Skin warm. Normal skin color. No rash. Extremities: Extremities nontender. Neuro: Oriented X 3. Mood/affect normal. No motor deficit. LABS, X-RAYS, AND EKG Laboratory Tests: UA-Culture if indicated: (DOMITILA: 11/29/2016 22:05) ( [facility] 22:36) Final results Test Result Flag Units (Reference) URINE COLOR YELLOW URINE APPEARANCE CLEAR URINE GLUCOSE NEGATIVE (NEGATIVE) URINE BILIRUBIN NEGATIVE (NEGATIVE) URINE KETONE NEGATIVE (NEGATIVE) URINE SPECIFIC GRAVITY 1.020 (1.010-1.030) URINE PH 6.5 (5.0-8.0) URINE PROTEIN NEGATIVE (NEGATIVE) URINE UROBILINOGEN 0.2 EU/dL (0.2-1.0) URINE NITRITE NEGATIVE (NEGATIVE) URINE BLOOD 3+ (NEGATIVE) URINE LEUK ESTERASE NEGATIVE (NEGATIVE) URINE RBC 75-100 rbc/hpf (0-1) URINE WBC 3-5 wbc/hpf (0-1) URINE EPITHELIAL CELLS 1-3 EPI/hpf (0-5) URINE BACTERIA FEW (1+) (NONE SEEN) URINE COMMENT CULT NOT INDICATED URINE CULTURES ARE SET-UP BASED ON THE FOLLOWING CRITERIA:POSITIVE NITRITEPOSITIVE LEUKOCYTE ESTERASEGREATER THAN 10 WHITE BLOOD CELLSMODERATE (2+) OR GREATER BACTERIA Urine: (DOMITILA: 11/29/2016 22:05) ( [facility] [place] 11/29/[place] 22:25) Final results Test Result Flag Units (Reference) URINE NEGATIVE CBC w Diff: (DOMITILA: 11/29/2016 22:05) ( [facility] [place] 11/29/2016 22:21) Final results Test Result Flag Units (Reference) WHITE BLOOD COUNT 8.8 K/uL (4.5-11.5) RED BLOOD COUNT 4.51 M/uL (4.00-5.20) HEMOGLOBIN 14.3 gm/dL (12.0-16.0) HEMATOCRIT 41.9 % (36.0-46.0) MEAN CELL VOLUME 93 fL (80-100) MEAN CORPUSCULAR HGB 32 pg (26-34) MEAN CORPUSCULAR HGB CONC 34 g/dL (31-37) RED CELL DISTRIBUTION WIDTH 12.5 % (11.6-14.8) PLATELET COUNT 161 K/uL (150-400) NEUTROPHIL % 61.2 % (50-75) LYMPH % 29.7 % (25-40) MONO % 7.0 % (3-14) EOSINOPHIL % 1.6 % (0-4) BASOPHIL % 0.5 % (0-2) CMP: (DOMITILA: 11/29/2016 22:05) ( MsgRcvd 11/29/2016 22:43) Final results Test Result Flag Units (Reference) GLUCOSE 100 mg/dL (70-110) BUN 14 mg/dL (7-18) CREATININE 0.7 mg/dL (0.6-1.3) Estimated GFR >60 mL/min Estimated GFR- >60 mL/min Note: Persistent reduction over 3 months in eGFR<60 mL/min/1.73 m2 defines CKD. Patients with eGFR values>=60 mL/min/1.73 m2 may also have CKD if evidence ofpersistent proteinuria. Additional information may be foundat www.kidney.org. SODIUM 141 mmol/L (136-145) POTASSIUM 3.6 mmol/L (3.5-5.1) CHLORIDE 105 mmol/L (98-107) CARBON DIOXIDE 24 mmol/L (21-32) CALCIUM 8.6 mg/dL (8.5-10.1) TOTAL PROTEIN 7.7 g/dL (6.4-8.2) ALBUMIN 4.0 g/dL (3.3-5.0) BILIRUBIN, TOTAL 0.3 mg/dL (0.0-1.0) ALKALINE PHOSPHATASE 104 U/L (46-116) AST (SGOT) 26 U/L (15-37) ALT (SGPT) 42 U/L (12-78) . PROGRESS AND PROCEDURES Course of Care: Pt not and timing is right for usual menses. Patient/family counseled. Disposition: Discharged. Condition: stable. CLINICAL IMPRESSION Menstrual bleeding test negative. INSTRUCTIONS Drink plenty of fluids. No sexual contact. Warnings: GENERAL WARNINGS: Return or contact your physician immediately if your condition worsens or changes unexpectedly, if not improving as expected, or if other problems arise. Follow-up: Follow up with your doctor in one week if not better. Call for an appointment. Understanding of the discharge instructions verbalized by patient. Discharge instructions reviewed with and understanding was verbalized by night shift supervisor. (Electronically signed by Ruben Patrick MD 12/02/2016 21:53)
--- NOTE | 2016-11-29 22:56 | ED CLINICAL REPORT ---
Clinical Report - Physicians/Mid Levels [facility] [address] [place] [address] 11/29/2016 21:49 Patient: COLIN QUIROS Time Seen: 22:07 Nov 29 2016. Arrived- By private vehicle. Historian- patient. HISTORY OF PRESENT ILLNESS Chief Complaint: VAGINAL BLEEDING. (( strong back pain last night and started bleeding today, took test faint positive and another today with positive).). Still present. The symptoms are described as moderate. Modifying factors. Not worsened by anything. Not relieved by anything. The patient has had mild, crampy, intermittent abdominal pain. No nausea, vomiting or radiation of abdominal pain to the back and abnormal bleeding described as spotting. No flank pain, pain with urination, urinary frequency, urgency of urination or hematuria. Sexually active. Does not use control measures. Similar symptoms previously: None. Recent medical care: Not recently seen/assessed. REVIEW OF SYSTEMS No nausea, vomiting, diarrhea, black stools or headache. No fever, chills, sore throat, cough or chest pain. No skin rash or enlarged lymph nodes. Last normal menstrual period- October 28 2016. 1. Para 1. Sexual history - sexually active. No contraception. All systems otherwise negative, except as recorded above. PAST HISTORY ( Sick Contact. Influenza. Biliary Colic. LNMP Cholecystectomy). Medications: None. Allergies: No Known Drug Allergy. SOCIAL HISTORY Never smoker. Occasional alcohol use. No drug use. ADDITIONAL NOTES The nursing notes have been reviewed. PHYSICAL EXAM Vital Signs: 11/29/2016 21:58 BP: 122/71. HR: 72. RR: 18. O2 saturation: 99%. Temp: 97.9 F. Pain level now: 10. Appearance: Alert. No acute distress. Anxious. ENT: Pharynx normal. Neck: Neck supple. CVS: Heart sounds normal. Respiratory: No respiratory distress. Breath sounds normal. Chest nontender. Abdomen: Soft and nontender. Bowel sounds normal. Back: No CVA tenderness. Skin: Skin warm. Normal skin color. No rash. Extremities: Extremities nontender. Neuro: Oriented X 3. Mood/affect normal. No motor deficit. LABS, X-RAYS, AND EKG Laboratory Tests: UA-Culture if indicated: (DOMITILA: 11/29/2016 22:05) ( [facility] [place] 11/29/2016 22:36) Final results Test Result Flag Units (Reference) URINE COLOR YELLOW URINE APPEARANCE CLEAR URINE GLUCOSE NEGATIVE (NEGATIVE) URINE BILIRUBIN NEGATIVE (NEGATIVE) URINE KETONE NEGATIVE (NEGATIVE) URINE SPECIFIC GRAVITY 1.020 (1.010-1.030) URINE PH 6.5 (5.0-8.0) URINE PROTEIN NEGATIVE (NEGATIVE) URINE UROBILINOGEN 0.2 EU/dL (0.2-1.0) URINE NITRITE NEGATIVE (NEGATIVE) URINE BLOOD 3+ (NEGATIVE) URINE LEUK ESTERASE NEGATIVE (NEGATIVE) URINE RBC 75-100 rbc/hpf (0-1) URINE WBC 3-5 wbc/hpf (0-1) URINE EPITHELIAL CELLS 1-3 EPI/hpf (0-5) URINE BACTERIA FEW (1+) (NONE SEEN) URINE COMMENT CULT NOT INDICATED URINE CULTURES ARE SET-UP BASED ON THE FOLLOWING CRITERIA:POSITIVE NITRITEPOSITIVE LEUKOCYTE ESTERASEGREATER THAN 10 WHITE BLOOD CELLSMODERATE (2+) OR GREATER BACTERIA Urine: (DOMITILA: 11/29/2016 22:05) ( [facility] 11/29/2016 22:25) Final results Test Result Flag Units (Reference) URINE NEGATIVE CBC w Diff: (DOMITILA: 11/29/2016 22:05) ( [facility] 11/29/2016 22:21) Final results Test Result Flag Units (Reference) WHITE BLOOD COUNT 8.8 K/uL (4.5-11.5) RED BLOOD COUNT 4.51 M/uL (4.00-5.20) HEMOGLOBIN 14.3 gm/dL (12.0-16.0) HEMATOCRIT 41.9 % (36.0-46.0) MEAN CELL VOLUME 93 fL (80-100) MEAN CORPUSCULAR HGB 32 pg (26-34) MEAN CORPUSCULAR HGB CONC 34 g/dL (31-37) RED CELL DISTRIBUTION WIDTH 12.5 % (11.6-14.8) PLATELET COUNT 161 K/uL (150-400) NEUTROPHIL % 61.2 % (50-75) LYMPH % 29.7 % (25-40) MONO % 7.0 % (3-14) EOSINOPHIL % 1.6 % (0-4) BASOPHIL % 0.5 % (0-2) CMP: (DOMITILA: 11/29/2016 22:05) ( [facility] 11/29/2016 22:43) Final results Test Result Flag Units (Reference) GLUCOSE 100 mg/dL (70-110) BUN 14 mg/dL (7-18) CREATININE 0.7 mg/dL (0.6-1.3) Estimated GFR >60 mL/min Estimated GFR- >60 mL/min Note: Persistent reduction over 3 months in eGFR<60 mL/min/1.73 m2 defines CKD. Patients with eGFR values>=60 mL/min/1.73 m2 may also have CKD if evidence ofpersistent proteinuria. Additional information may be foundat www.kidney.org. SODIUM 141 mmol/L (136-145) POTASSIUM 3.6 mmol/L (3.5-5.1) CHLORIDE 105 mmol/L (98-107) CARBON DIOXIDE 24 mmol/L (21-32) CALCIUM 8.6 mg/dL (8.5-10.1) TOTAL PROTEIN 7.7 g/dL (6.4-8.2) ALBUMIN 4.0 g/dL (3.3-5.0) BILIRUBIN, TOTAL 0.3 mg/dL (0.0-1.0) ALKALINE PHOSPHATASE 104 U/L (46-116) AST (SGOT) 26 U/L (15-37) ALT (SGPT) 42 U/L (12-78) . PROGRESS AND PROCEDURES Course of Care: Pt not and timing is right for usual menses. Patient/family counseled. Disposition: Discharged. Condition: stable. CLINICAL IMPRESSION Menstrual bleeding test negative. INSTRUCTIONS Drink plenty of fluids. No sexual contact. Warnings: GENERAL WARNINGS: Return or contact your physician immediately if your condition worsens or changes unexpectedly, if not improving as expected, or if other problems arise. Follow-up: Follow up with your doctor in one week if not better. Call for an appointment. Understanding of the discharge instructions verbalized by patient. Discharge instructions reviewed with and understanding was verbalized by board handler. (Electronically signed by Ruben Patrick MD 12/02/2016 21:53)
--- NOTE | 2016-11-29 22:56 | ED NURSING NOTES ---
Clinical Report - Nurses [facility] [address] [place] [address] 11/29/2016 21:49 Patient: COLIN QUIROS TRIAGE Triage time 21:58. Acuity: LEVEL 3. Chief Complaint: ABDOMINAL PAIN and VAGINAL BLEEDING. --22:04 Aurelia Harden R.N. 21:58 11/29/16. BP: 122/71 taken on the left arm, while lying. HR: 72. RR: 18. O2 saturation: 99%. Temp: 97.9 F (oral). Pain level now: 09/19. --22:04 Aurelia Harden R.N. Weight: 65.7 kg stated. Height/Length: 65 inches Per Patient. BMI: 24.1. --22:02 Aurelia Harden R.N. Medications None. --22:02 Aurelia Harden R.N. Allergies No Known Drug Allergy. --22:02 Aurelia Harden R.N. History Arrived by private vehicle. Historian: patient. Unaccompanied. Primary physician (Sherlyn Ayoub). This started last night. ( strong back pain last night and started bleeding today, took test faint positive and another today with positive). ( nausea). PAST MEDICAL HX: Immunizations: up-to-date. Last normal menstrual period- October 28 2016. 1. Para 1. Sexual history - sexually active. No contraception. SOCIAL HX: Never smoker. Occasional alcohol use. No drug use. She has not traveled outside the [place] The patient was not exposed to tuberculosis, influenza, chicken pox, meningitis, MRSA, VRE, C-diff, SARS, Dre flu, H1N1 flu, Ebola or MERS. ABUSE ASSESSMENT: No report of abuse. SELF HARM ASSESSMENT: A self harm assessment was performed. The patient answered "no" to the question "Have you recently felt down, depressed, or hopeless?", "Have you noticed less interest or pleasure in doing things?", "Do you have thoughts of harming or killing yourself?", "Are you here because you tried to hurt yourself?", "Have you ever tried to hurt yourself before today?", "Have you recently had thoughts about harming or killing others?" and "Do you have any dangerous items in your possession?". FALL RISK ASSESSMENT: Fall risk assessment completed. No fall risk identified. NUTRITIONAL RISK ASSESSMENT: The nutritional risk assessment revealed no deficiencies. FUNCTIONAL ASSESSMENT: Functional assessment: no impairments noted. LEARNING NEEDS ASSESSMENT: The learning needs assessment revealed no barriers. SKIN INTEGRITY ASSESSMENT: Skin integrity risk assessment completed. No skin integrity risk identified. --22:04 Aurelia Harden R.N. PROBLEMS: Sick Contact. Influenza. Biliary Colic. LNMP - Last Normal Menstrual Period. --22:03 Aurelia Harden R.N. ADDITIONAL SURGERIES: Cholecystectomy. --22:03 Aurelia Harden R.N. Interventions ID band on patient. --22:04 Aurelia Harden R.N. PHYSICAL ASSESSMENT Ambulatory to room. GENERAL / NEURO / PSYCH: Alert. Oriented X 4. Appears in no acute distress. HEENT: Mucous membranes are pink. RESPIRATORY: Respirations not labored. Breath sounds within normal limits. CVS: Normal heart rate and rhythm. GI / : Bowel sounds within normal limits. Scant vaginal bleeding present (2 pads today). A scant amount of clear vaginal discharge present (sticky). EXTREMITIES: No lower extremity edema. SKIN: Skin is warm and dry. --22:06 Aurelia Harden R.N. NURSING PROGRESS NOTES Patient gowned. Two patient identifiers checked. Call light placed in reach. Side rails up x 1. Bed placed in lowest position. Brakes of bed on. --22:06 Aurelia Harden R.N. 22:06 11/29/2016 Site #1 started via IV in the left antecubital space with an 20g angiocath, with aseptic technique and good blood return; one attempt. Blood drawn: rainbow set. Labeled in the presence of the patient and sent to the lab. Saline lock flushed with 10 mL saline. --22:06 Aurelia Harden R.N. Patient ID band checked for patient name: patient confirmed. Instructions provided to collect clean catch urine and patient verbalized understanding. Clean catch urine collected with return of yellow-colored clear urine; sample sent to lab for urinalysis and HCG. Specimen labeled in the presence of the patient. --22:07 Aurelia Harden R.N. Patient ready for evaluation- chart flagged. --22:07 Aurelia Harden R.N. DISPOSITION / DISCHARGE No learning barriers present. Discharge instructions provided and reviewed with the patient. Patient verbalized understanding. Written instructions provided in Somali. No warning instructions, medication instructions, treatment instructions or referrals given to the patient. The patient was discharged home and accompanied by family. She left the Emergency Department ambulatory and via private vehicle. Patient driving. --23:23 Aurelia Harden R.N. 23:22 11/29/16. BP: 118/76. HR: 82. RR: 18. O2 saturation: 100%. Temp: deferred. Pain level now: 08/22. --23:23 Aurelia Harden R.N. Departure time: 23:18. --23:23 Aurelia Harden R.N. 23:18 11/29/2016 Site #1 removed upon discharge. Catheter intact. Manual pressure and bandage applied. --23:24 Aurelia Harden R.N. Locked/Released at 11/29/2016 23:24 by Aurelia Harden R.N.
--- NOTE | 2016-12-02 21:53 | ED DISCHARGE INSTRUCTIONS ---
Patient: COLIN QUIROS General Instructions [facility] VisitID: [id number] [address] [place] [address] 26y, F Registration Date/Time: 11/29/2016 Menstrual bleeding test negative. INSTRUCTIONS Drink plenty of fluids. No sexual contact. Warnings: GENERAL WARNINGS: Return or contact your physician immediately if your condition worsens or changes unexpectedly, if not improving as expected, or if other problems arise. Follow-up: Follow up with your doctor in one week if not better. Call for an appointment. Understanding of the discharge instructions verbalized by patient. Discharge instructions reviewed with and understanding was verbalized by black top spreader machine operator. (Electronically signed by Ruben Patrick MD 12/02/2016 21:53)
--- NOTE | 2016-12-02 21:53 | ED MAR SUMMARY ---
..... Medication Administration Record [facility] [address] [place], [place] [id number] Patient: COLIN QUIROS Visit ID: [id number] 26y, F Weight: 65.7 kg Height/Length: 65 in BMI: 24.1 ALLERGIES: No Known Drug Allergy
--- NOTE | 2016-12-02 21:53 | ED MAR SUMMARY ---
..... Medication Administration Record [facility] [address] [place], [place] [id number] Patient: COLIN QUIROS Visit ID: [id number] 26y, F Weight: 65.7 kg Height/Length: 65 in BMI: 24.1 ALLERGIES: No Known Drug Allergy
--- NOTE | 2016-12-02 21:53 | ED MED RECONCILIATION SUMMARY ---
Patient: COLIN QUIROS Medication Reconciliation Report [facility] VisitID: [id number] [address] [place] [address] 26y, F Registration Date/Time: 11/29/2016 Weight: 65.7 kg Height/Length: 65 in. BMI: 24.1 ALLERGIES: No Known Drug Allergy The patient's Home Medications are listed below: NONE. The source(s) of the original Home Medication information: Not obtained. The following Medications were given to the patient in the Emergency Department: None. The following Medications were prescribed to the patient: None.
--- NOTE | 2016-12-02 21:53 | ED MED RECONCILIATION SUMMARY ---
Patient: COLIN QUIROS Medication Reconciliation Report [facility] VisitID: [id number] [address] [place] [place] [address] 26y, F Registration Date/Time: 11/29/2016 Weight: 65.7 kg Height/Length: 65 in. BMI: 24.1 ALLERGIES: No Known Drug Allergy The patient's Home Medications are listed below: NONE. The source(s) of the original Home Medication information: Not obtained. The following Medications were given to the patient in the Emergency Department: None. The following Medications were prescribed to the patient: None.
--- NOTE | 2016-12-02 21:53 | ED DISCHARGE INSTRUCTIONS ---
Patient: COLIN QUIROS General Instructions [facility] VisitID: [id number] [address] [place] [address] 26y, F Registration Date/Time: 11/29/2016 Menstrual bleeding test negative. INSTRUCTIONS Drink plenty of fluids. No sexual contact. Warnings: GENERAL WARNINGS: Return or contact your physician immediately if your condition worsens or changes unexpectedly, if not improving as expected, or if other problems arise. Follow-up: Follow up with your doctor in one week if not better. Call for an appointment. Understanding of the discharge instructions verbalized by patient. Discharge instructions reviewed with and understanding was verbalized by movers. (Electronically signed by Ruben Patrick MD 12/02/2016 21:53)
== END 2016-11-29 23:18 | disposition home or self-care (01) ==
LOC: ED SRH 21:49
DX: N93.9 Abnormal uterine and vaginal bleeding, unspecified (principal); Z32.02 Encounter for pregnancy test, result negative
CPT/HCPCS: 90004; 90100; 93070; 95059